=== PATIENT | female | born 1965 | race Caucasian/White ===

== ENCOUNTER → 2016-04-25 | Day surgery (SDC) | payer OTHER ==
[~2016-04-25] VITALS: Ht 160 cm; Wt 68.5 kg
[~2016-04-25] MED LIST: ALEN70TA39 PO; ASPI1TAB PO; BACITRACIN OINT 30GM As Ordered ONE; BACITRACIN OINT 30GM TOP ONE; GEMF600T PO; LIDOCAINE 2% INJ 100 MG/5 ML SDV (FOR ANES.) As Ordered ONE; LIDOCAINE W/EPINEPHRINE 1% 20ML VIAL As Ordered ONE; LIDOCAINE W/EPINEPHRINE 1% 20ML VIAL SC ONE; LR 1,000 ML IV SCH; MIDAZOLAM INJ 2 MG/2 ML VIAL (J2250) As Ordered ONE; NORCOTAB PO; PROPOFOL 200 MG/20 ML VIAL As Ordered ONE; VERA100C PO; VERA40TA2 PO; VITA200015 PO; [UNRECOGNIZED DRUG - OTHER] IM; dexameTHASONE 4 MG/ML 1ML VIAL (J1100) IV ONE; fentaNYL 100 MCG/2 ML INJECTION (J3010) As Ordered ONE
[2016-04-25 11:10] VITALS: BP 119/76
--- NOTE | 2016-04-26 08:42 | RO ---
DATE OF PROCEDURE: 04/25/2016 PREPROCEDURE DIAGNOSIS: Left cheek cutaneous lesion, 1x1 cm. POSTPROCEDURE DIAGNOSIS: Left cheek cutaneous lesion, 1x1 cm. PROCEDURE: Excisional biopsy of the left cheek lesion. SURGEON: Dr. Tomás Walls SUBSTANCE ABUSE TECHNICIAN: ANESTHESIA: Local. CLINICAL PREAMBLE: This is a 50-year-old woman who presented to the office with an enlarging pigmented lesion over the left cheek area in the left lower lip region. Management options including excisional biopsy had been discussed. The patient understood and consented to the procedure. OR NARRATION: The patient was identified in preoperative holding and had the left cheek marked. She was brought to the operating room in stable condition. In supine position on the operating table, the patient received local sedation. The patient was prepped and draped in the usual fashion for the procedure. The left cheek cutaneous lesion was outlined and measured 1x1 cm in size. The margin of the excision site was infiltrated with 1% lidocaine with 1:00,000 epinephrine. Skin incision was made using a #15 scalpel. The excisional biopsy was then successfully performed. Hemostasis was achieved using bipolar electrocautery. The deep layer of the skin was closed using the #5-0 Monocryl. The final skin closure was achieved using #6-0 Prolene. Upon complete closure of the two layer closure, bacitracin was applied to the surgical site. At the end of the procedure, sponge and instrument counts were correct. No complications were encountered. Estimated blood loss was less than 1 mL. Local sedation was reversed and the patient was awakened and taken to the recovery room in stable condition.
== END | disposition home or self-care (01) ==
LOC: M SDC 08:10
PROVIDERS: ATTEND Otolaryngology
DX: L57.0 Actinic keratosis (principal); I10 Essential (primary) hypertension; E78.5 Hyperlipidemia, unspecified; K58.8 Other irritable bowel syndrome; Z79.82 Long term (current) use of aspirin; Z88.0 Allergy status to penicillin; F17.210 Nicotine dependence, cigarettes, uncomplicated
CPT/HCPCS: 11441; 88305; J1100; J2250; J3010

== ENCOUNTER 2016-07-18 19:06 | Emergency (ER) | payer OTHER ==
[~2016-07-18] VITALS: Ht 160 cm; Wt 68.5 kg
[~2016-07-18 19:06] MED LIST changes: -CLEO300C2 PO; -IBUP600T26 PO; -TYLE500T78 PO
[2016-07-18] MEDS ORDERED: TYLE500T78 PO (19:16)
[2016-07-18] MEDS ORDERED: CLEO300C2 PO (20:25)
[2016-07-18] MEDS ORDERED: IBUP600T26 PO (20:25)
[2016-07-18] MEDS ORDERED: IBUPROFEN 600 MG TAB PO ONE (20:30)
[2016-07-18] MEDS ORDERED: CLINDAMYCIN 150 MG CAP PO ONE (20:30)
[2016-07-18 20:55] VITALS: BP 124/78
== END 2016-07-18 20:57 | disposition home or self-care (01) ==
LOC: M ED 20:36
DX: K05.20 Aggressive periodontitis, unspecified (principal); F17.200 Nicotine dependence, unspecified, uncomplicated; Z79.82 Long term (current) use of aspirin; Z88.0 Allergy status to penicillin; Z88.8 Allergy status to other drugs, medicaments and biological substances

== ENCOUNTER → 2016-07-18 | Outpatient (REF) | payer OTHER ==
[~2016-07-18] MED LIST changes: -BACITRACIN OINT 30GM As Ordered ONE; -BACITRACIN OINT 30GM TOP ONE; +CLEO300C2 PO; +IBUP600T26 PO; -LIDOCAINE 2% INJ 100 MG/5 ML SDV (FOR ANES.) As Ordered ONE; -LIDOCAINE W/EPINEPHRINE 1% 20ML VIAL As Ordered ONE; -LIDOCAINE W/EPINEPHRINE 1% 20ML VIAL SC ONE; -LR 1,000 ML IV SCH; -MIDAZOLAM INJ 2 MG/2 ML VIAL (J2250) As Ordered ONE; -PROPOFOL 200 MG/20 ML VIAL As Ordered ONE; +TYLE500T78 PO; -dexameTHASONE 4 MG/ML 1ML VIAL (J1100) IV ONE; -fentaNYL 100 MCG/2 ML INJECTION (J3010) As Ordered ONE
[2016-07-18 20:01] LABS: MEAN CORPUSCULAR HEMOGLOBIN 29.6 pg (27.0-33.0); MEAN CORPUSCULAR HGB CONC 33.2 g/dl (32.0-36.5); MEAN CORPUSCULAR VOLUME 89.2 fl (80.0-96.0); RED CELL DISTRIBUTION WIDTH 11.9 % (11.5-14.5); WHITE BLOOD COUNT 7.4 K/mm3 (4.0-10.0)
== END ==
LOC: M LAB REF 16:53
PROVIDERS: ATTEND Nurse Practitioner Family
DX: R23.8 Other skin changes (principal)

== ENCOUNTER → 2016-07-25 | Outpatient (REF) | payer OTHER ==
[~2016-07-25] MED LIST changes: +CLEO300C2 PO; +IBUP600T26 PO; +TYLE500T78 PO
[2016-07-25 14:51] LABS: ALBUMIN 3.9 GM/DL (3.2-5.2); ALBUMIN/GLOBULIN RATIO 1.18 (1.00-1.93); ALKALINE PHOSPHATASE 110 U/L (45-117); ALT/SGPT 34 U/L (12-78); ANION GAP 8 MEQ/L (8-16); AST/SGOT 19 U/L (15-37); BILIRUBIN,TOTAL 0.4 MG/DL (0.2-1.0); BLOOD UREA NITROGEN 20 MG/DL (7-18); CALCIUM LEVEL 9.2 MG/DL (8.5-10.1); CARBON DIOXIDE LEVEL 26 MEQ/L (21-32); CHLORIDE LEVEL 106 MEQ/L (98-107); CHOLESTEROL LEVEL 205 MG/DL (<200); CREATININE FOR GFR 0.78 MG/DL (0.55-1.02); GLOMERULAR FILTRATION RATE > 60.0 (>51); GLUCOSE, FASTING 87 MG/DL (70-105); POTASSIUM SERUM 5.1 MEQ/L (3.5-5.1); SODIUM LEVEL 140 MEQ/L (136-145); TOTAL PROTEIN 7.2 GM/DL (6.4-8.2); TRIGLYCERIDES LEVEL 155 MG/DL (<150)
== END ==
LOC: M LAB REF 12:02
PROVIDERS: ATTEND Nurse Practitioner Family
DX: M81.0 Age-related osteoporosis without current pathological fracture (principal); E78.5 Hyperlipidemia, unspecified

== ENCOUNTER 2016-08-26 12:41 | Emergency (ER) | payer OTHER ==
[~2016-08-26] VITALS: Ht 160 cm; Wt 69.4 kg
[2016-08-26] MEDS ORDERED: VITA500046 PO (12:54)
[2016-08-26] MEDS ORDERED: CALC600T21 PO (12:54)
[2016-08-26 15:14] LABS: BASO % 0.7 % (0.0-1.0); EOS # 0.1 K/mm3 (0.0-0.50); EOS % 1.8 % (0.0-3.0); LARGE UNSTAINED CELL # 0.1 K/mm3 (0.0-0.4); LARGE UNSTAINED CELL % 1.3 % (0.0-4.0); LYMPH # 2.4 K/mm3 (1.5-4.5); LYMPH % 30.6 % (24.0-44.0); MEAN CORPUSCULAR HEMOGLOBIN 30.4 pg (27.0-33.0); MEAN CORPUSCULAR HGB CONC 34.2 g/dl (32.0-36.5); MEAN CORPUSCULAR VOLUME 88.7 fl (80.0-96.0); MONO # 0.4 K/mm3 (0.0-0.8); MONO % 5.4 % (0.0-5.0); NEUTROPHILS # 4.6 K/mm3 (1.8-7.7); NEUTROPHILS % 60.3 % (36.0-66.0); PLATELET COUNT, AUTOMATED 356 k/mm3 (150-450); RED CELL DISTRIBUTION WIDTH 12.1 % (11.5-14.5); WHITE BLOOD COUNT 7.6 K/mm3 (4.0-10.0)
[2016-08-26 15:46] LABS: ANION GAP 5 MEQ/L (8-16); BLOOD UREA NITROGEN 15 MG/DL (7-18); CALCIUM LEVEL 9.2 MG/DL (8.5-10.1); CARBON DIOXIDE LEVEL 28 MEQ/L (21-32); CHLORIDE LEVEL 108 MEQ/L (98-107); GLOMERULAR FILTRATION RATE > 60.0 (>51); GLUCOSE, FASTING 92 MG/DL (70-105); POTASSIUM SERUM 4.5 MEQ/L (3.5-5.1); SODIUM LEVEL 141 MEQ/L (136-145)
[2016-08-26] MEDS ORDERED: ISOVUE-370 76% 100ML VIAL (Q9967) As Ordered ONE (16:16)
[2016-08-26 18:02] VITALS: BP 113/67
--- NOTE | 2016-08-26 18:19 | ECGEPIP ---
Stationary ECG Study [place] - ED Test Date: 2016-08-26 Pat Name: ALONSO AMARO Department: Room: - Gender: F Poll Clerk: MS : 1965 Requested By: REGI NEWTON Order Number: [id number] Reading MD: Татьяна Romero Measurements Intervals [place] Rate: 71 P: 36 NE: 131 QRS: 41 QRSD: 83 T: 40 QT: 378 QTc: 412 Interpretive Statements SINUS RHYTHM POSSIBLE RIGHT VENTRICULAR CONDUCTION DELAY Electronically Signed On 08-26-2016 18:19:06 EDT by Татьяна Romero
--- NOTE | 2016-08-27 09:16 | REP ---
CT ABDOMEN AND PELVIS WITH CONTRAST: HISTORY: Pelvic pain. CONTRAST: Isovue-370, 100 mL. COMPARISON: 06/05/2014 The patient is status post cholecystectomy. A 6 mm hypodensity is present in the right lobe of the liver. Two hypodensities, 4 and 6 mm in size, are present in the inferior spleen. These may represent cysts. The pancreas, adrenal glands, and kidneys are normal in appearance. There is no mass, adenopathy, or free fluid. The visualized lungs are clear. The patient is status post hysterectomy. The urinary bladder is normal in appearance. IMPRESSION: 1. The patient is status post cholecystectomy. 2. There are small hypodensities in the liver and spleen that most likely represent cysts. Ultrasound may be helpful for further evaluation. 3. The patient is status post hysterectomy. Signed by Rubén Downs MD 08/27/2016 09:23 A
== END 2016-08-26 18:22 | disposition home or self-care (01) ==
LOC: M ED 13:40
DX: R10.2 Pelvic and perineal pain (principal); M53.3 Sacrococcygeal disorders, not elsewhere classified; I10 Essential (primary) hypertension; E78.5 Hyperlipidemia, unspecified; K21.9 Gastro-esophageal reflux disease without esophagitis; F17.210 Nicotine dependence, cigarettes, uncomplicated; K58.9 Irritable bowel syndrome, unspecified; Z88.8 Allergy status to other drugs, medicaments and biological substances; Z88.0 Allergy status to penicillin

== ENCOUNTER → 2016-10-02 | Outpatient (REF) | payer OTHER ==
[~2016-10-02] MED LIST changes: +CALC600T60 PO; +D 501TAB; +ESTR1CRE; +FLUT1SPR2; +IBUP-1022 PO; -IBUP600T26 PO; +ULTR50TA8 PO; +VITA500046 PO
[2016-10-02 19:20] LABS: ANION GAP 7 MEQ/L (8-16); BLOOD UREA NITROGEN 15 MG/DL (7-18); CALCIUM LEVEL 9.5 MG/DL (8.5-10.1); CARBON DIOXIDE LEVEL 26 MEQ/L (21-32); CHLORIDE LEVEL 106 MEQ/L (98-107); CREATININE FOR GFR 0.86 MG/DL (0.55-1.02); GLOMERULAR FILTRATION RATE > 60.0 (>51); GLUCOSE, FASTING 97 MG/DL (70-105); POTASSIUM SERUM 4.3 MEQ/L (3.5-5.1); SODIUM LEVEL 139 MEQ/L (136-145)
== END ==
LOC: M LAB REF 17:50
PROVIDERS: ATTEND Nurse Practitioner Family
DX: E55.9 Vitamin D deficiency, unspecified (principal)

== ENCOUNTER → 2016-12-04 | Outpatient (CLI) | payer OTHER ==
[2016-12-04 14:54] LABS: ALBUMIN 3.9 GM/DL (3.2-5.2); ALBUMIN/GLOBULIN RATIO 1.18 (1.00-1.93); BILIRUBIN,DIRECT 0.1 MG/DL (0.0-0.2); BILIRUBIN,TOTAL 0.4 MG/DL (0.2-1.0); TOTAL PROTEIN 7.2 GM/DL (6.4-8.2)
== END ==
LOC: M LAB 12:20
PROVIDERS: ATTEND Internal Medicine Cardiovascular Disease
DX: E78.5 Hyperlipidemia, unspecified (principal)

== ENCOUNTER 2016-12-11 12:23 | Emergency (ER) | payer OTHER ==
[~2016-12-11] VITALS: Ht 160 cm; Wt 70.0 kg
[~2016-12-11 12:23] MED LIST changes: -D 501TAB; -ESTR1CRE; -FLUT1SPR2; -ULTR50TA8 PO
[2016-12-11 12:24] VITALS: BP 147/82
[2016-12-11] MEDS ORDERED: FLUT1SPR2 (12:53)
[2016-12-11] MEDS ORDERED: ULTR50TA8 PO (14:22)
== END 2016-12-11 14:43 | disposition home or self-care (01) ==
LOC: M ED 12:23
DX: S70.12XA Contusion of left thigh, initial encounter (principal); X58.XXXA Exposure to other specified factors, initial encounter; Y92.89 Other specified places as the place of occurrence of the external cause; Y93.89 Activity, other specified; Y99.8 Other external cause status; I10 Essential (primary) hypertension; E78.00 Pure hypercholesterolemia, unspecified; Z79.51 Long term (current) use of inhaled steroids; Z79.82 Long term (current) use of aspirin; Z79.899 Other long term (current) drug therapy; Z88.8 Allergy status to other drugs, medicaments and biological substances; Z88.0 Allergy status to penicillin

== ENCOUNTER 2016-12-14 17:31 | Emergency (ER) | payer OTHER ==
[~2016-12-14] VITALS: Ht 160 cm; Wt 76.9 kg
[~2016-12-14 17:31] MED LIST changes: -D 501TAB; -ESTR1CRE
[2016-12-14] MEDS ORDERED: D 501TAB (17:44)
[2016-12-14] MEDS ORDERED: ESTR1CRE (17:44)
[2016-12-14 21:34] LABS: BASO # 0.1 K/mm3 (0.0-0.2); BASO % 0.6 % (0.0-1.0); EOS # 0.2 K/mm3 (0.0-0.50); EOS % 2.3 % (0.0-3.0); LARGE UNSTAINED CELL # 0.2 K/mm3 (0.0-0.4); LARGE UNSTAINED CELL % 1.4 % (0.0-4.0); LYMPH # 3.4 K/mm3 (1.5-4.5); LYMPH % 31.6 % (24.0-44.0); MEAN CORPUSCULAR HEMOGLOBIN 31.1 pg (27.0-33.0); MEAN CORPUSCULAR HGB CONC 35.3 g/dl (32.0-36.5); MEAN CORPUSCULAR VOLUME 88.3 fl (80.0-96.0); MONO # 0.4 K/mm3 (0.0-0.8); MONO % 3.8 % (0.0-5.0); NEUTROPHILS # 6.5 K/mm3 (1.8-7.7); NEUTROPHILS % 60.2 % (36.0-66.0); PLATELET COUNT, AUTOMATED 452 k/mm3 (150-450); RED CELL DISTRIBUTION WIDTH 12.3 % (11.5-14.5); WHITE BLOOD COUNT 10.8 K/mm3 (4.0-10.0)
[2016-12-14 21:40] LABS: INR 0.94
[2016-12-14 21:56] LABS: ANION GAP 7 MEQ/L (8-16); BLOOD UREA NITROGEN 15 MG/DL (7-18); CALCIUM LEVEL 9.8 MG/DL (8.5-10.1); CARBON DIOXIDE LEVEL 29 MEQ/L (21-32); CHLORIDE LEVEL 106 MEQ/L (98-107); CREATININE FOR GFR 0.81 MG/DL (0.55-1.02); GLOMERULAR FILTRATION RATE > 60.0 (>51); GLUCOSE, FASTING 96 MG/DL (70-105); POTASSIUM SERUM 4.2 MEQ/L (3.5-5.1); SODIUM LEVEL 142 MEQ/L (136-145)
--- NOTE | 2016-12-14 22:50 | REPUSA ---
CT of the head Clinical history: vertigo. Comparison: 03/02/2013. Technique: Multiple axial CT images were obtained through the head without administration of contrast . Findings: The ventricles and sulci are symmetric bilaterally. There is no evidence of acute hemorrhag e or infarct. There is no midline shift, mass effect, or extra-axial fluid collection. The osseous st ructures are unremarkable. The visualized paranasal sinuses and mastoid air cells are clear. Impression: Negative study.
[2016-12-14 23:19] VITALS: BP 123/77
--- NOTE | 2016-12-15 11:43 | ECGEPIP ---
Stationary ECG Study [facility] - ED Test Date: 2016-12-14 Pat Name: ALONSO AMARO Department: Room: - Gender: F Verse Writer: : 1965 Requested By: LASHANDA Leiva PA-C Order Number: [id number] Reading MD: Татьяна Romero Measurements Intervals [place] Rate: 90 P: 57 NH: 127 QRS: 46 QRSD: 85 T: 34 QT: 349 QTc: 428 Interpretive Statements SINUS RHYTHM MODERATE ST DEPRESSION COMPARED 08/26/16 Electronically Signed On 12-15-2016 11:43:44 EDT by Татьяна Romero
--- NOTE | 2016-12-22 16:49 | REP ---
HISTORY: Chest tightness. COMPARISON: 01/11/2016 Original examination date: 12/14/2016 This examination has been brought to my attention for the first time for interpretation today at this time. FINDINGS: The superior mediastinal structures are midline. The cardiac silhouette is unremarkable in size, shape and position. The diaphragmatic surfaces of the lungs are regular and the costophrenic angles are clear. The pulmonary velázquez are clear. The imaged osseous structures are intact. IMPRESSION: There is no acute cardiopulmonary disease. No change from the prior exam. Signed by Paul Nash DO 12/22/2016 05:12 P
== END 2016-12-14 23:41 | disposition home or self-care (01) ==
LOC: M ED 17:31
DX: R42 Dizziness and giddiness (principal); F41.9 Anxiety disorder, unspecified; F17.200 Nicotine dependence, unspecified, uncomplicated; Z82.49 Family history of ischemic heart disease and other diseases of the circulatory system; Z79.82 Long term (current) use of aspirin; Z79.899 Other long term (current) drug therapy; Z88.0 Allergy status to penicillin; Z88.8 Allergy status to other drugs, medicaments and biological substances

== ENCOUNTER → 2016-12-14 | Outpatient (CLI) | payer OTHER ==
[~2016-12-14] MED LIST changes: +D 501TAB; +ESTR1CRE; +FLUT1SPR2; +ULTR50TA8 PO
[2016-12-14 12:49] LABS: BASO # 0.1 K/mm3 (0.0-0.2); BASO % 0.7 % (0.0-1.0); EOS # 0.2 K/mm3 (0.0-0.50); EOS % 2.2 % (0.0-3.0); LARGE UNSTAINED CELL # 0.2 K/mm3 (0.0-0.4); LARGE UNSTAINED CELL % 2.1 % (0.0-4.0); LYMPH # 2.5 K/mm3 (1.5-4.5); LYMPH % 29.7 % (24.0-44.0); MEAN CORPUSCULAR HEMOGLOBIN 30.4 pg (27.0-33.0); MEAN CORPUSCULAR HGB CONC 34.3 g/dl (32.0-36.5); MEAN CORPUSCULAR VOLUME 88.6 fl (80.0-96.0); MONO # 0.4 K/mm3 (0.0-0.8); MONO % 4.7 % (0.0-5.0); NEUTROPHILS % 60.7 % (36.0-66.0); PLATELET COUNT, AUTOMATED 417 k/mm3 (150-450); RED CELL DISTRIBUTION WIDTH 12.3 % (11.5-14.5); WHITE BLOOD COUNT 8.3 K/mm3 (4.0-10.0)
== END ==
LOC: M LAB 11:55
PROVIDERS: ATTEND Family Medicine Addiction Medicine
DX: R42 Dizziness and giddiness (principal)

== ENCOUNTER → 2017-01-08 | Outpatient (CLI) | payer OTHER ==
[~2017-01-08] MED LIST changes: +D 501TAB; +ESTR1CRE
--- NOTE | 2017-01-09 02:20 | REP ---
Clinical: Upper respiratory tract infection . Comparison: 12/14/2016 . Technique: PA and lateral. Findings: The mediastinum and cardiac silhouette are normal. The lung velázquez are clear and without acute consolidation, effusion, or pneumothorax. The skeletal structures are intact and normal. Impression: 1. No acute cardiopulmonary process. Signed by Nicko Gomez MD 01/09/2017 02:12 A
== END ==
LOC: M LAB 11:44 → M RAD 11:44
PROVIDERS: ATTEND Nurse Practitioner Adult Health
DX: J06.9 Acute upper respiratory infection, unspecified (principal)

== ENCOUNTER → 2017-03-14 | Outpatient (CLI) | payer OTHER ==
--- NOTE | 2017-03-14 15:17 | REPMRS ---
Patient History The patient states she has not had a clinical breast exam in over a year. Family history of endometrial cancer in mother at age 50 or over. Digital Mammo Screening Bilat: March 14, 2017 - Exam #: [id number] Bilateral CC and MLO view(s) were taken. Technologist: Joceline Cabrera, Technologist Prior study comparison: March 13, 2016, bilateral digital mammo screening bilat performed at [facility]. March 10, 2015, digital mammo diagnostic bilateral performed at [facility]. FINDINGS: There are scattered fibroglandular densities. There is a fairly symmetric fibroglandular pattern in both breasts. There has been no interval development of masses, areas of architectural distortion or clusters of microcalcifications typical of malignancy. ASSESSMENT: BI-RADS/ACR category 2 mammogram. Benign finding(s). Recommendation Routine screening mammogram of both breasts in 1 year (for women over age 40). This mammogram was interpreted with the aid of an FDA-approved computer-aided dectection system. Electronically Signed By: Gwyn Douglass MD 03/14/17 [id number]
== END ==
LOC: M RAD 14:24
PROVIDERS: ATTEND Nurse Practitioner Adult Health
DX: Z12.31 Encounter for screening mammogram for malignant neoplasm of breast (principal)

== ENCOUNTER 2017-08-24 20:03 | Emergency (ER) | payer OTHER ==
[2017-08-24] MEDS: METHOCARBAMOL 500 MG TAB PO (21:11)
[2017-08-24] MEDS: NORCO, ANEXSIA 5/325MG TABLET (HYDROcodone/ACETAMINOPHEN) PO (21:12)
== END 2017-08-24 21:27 | disposition home or self-care (01) ==
LOC: M ED 20:03
DX: S29.012A Strain of muscle and tendon of back wall of thorax, initial encounter (principal); X50.0XXA Overexertion from strenuous movement or load, initial encounter; Y92.89 Other specified places as the place of occurrence of the external cause; I10 Essential (primary) hypertension; K21.9 Gastro-esophageal reflux disease without esophagitis; F90.9 Attention-deficit hyperactivity disorder, unspecified type; Z88.0 Allergy status to penicillin; Z88.8 Allergy status to other drugs, medicaments and biological substances; Z79.82 Long term (current) use of aspirin
CPT/HCPCS: 99282

== ENCOUNTER → 2017-09-28 | Outpatient (CLI) | payer OTHER | LOC: M RAD 14:10 | DX: H92.02 Otalgia, left ear (principal) | CPT/HCPCS: 70480 ==

== ENCOUNTER 2017-10-25 10:22 | Day surgery (SDC) | payer OTHER ==
[2017-10-25] MEDS: LR 1,000 ML IV ×2 (11:00→14:34)
[2017-10-25] MEDS ORDERED: MIDAZOLAM INJ 2 MG/2 ML VIAL (J2250) As Ordered (11:54)
[2017-10-25] MEDS ORDERED: ONDANSETRON 4MG/2ML VIAL (J2405) As Ordered (11:54)
[2017-10-25] MEDS ORDERED: dexameTHASONE 4 MG/ML 1ML VIAL (J1100) As Ordered (11:54)
[2017-10-25] MEDS ORDERED: LIDOCAINE 2% INJ 100 MG/5 ML SDV (FOR ANES.) As Ordered (11:54)
[2017-10-25] MEDS ORDERED: fentaNYL 100 MCG/2 ML INJECTION (J3010) As Ordered (11:54)
[2017-10-25] MEDS ORDERED: PROPOFOL 200 MG/20 ML VIAL As Ordered (11:54)
[2017-10-25] MEDS: SCOPOLAMINE 1MG TRANSDERMAL PATCH TOP (12:00)
[2017-10-25] MEDS ORDERED: SCOPOLAMINE 1MG TRANSDERMAL PATCH As Ordered (12:00)
[2017-10-25] MEDS: CIPRODEX OTIC SUSP 7.5ML As Ordered (14:23)
[2017-10-25] MEDS ORDERED: ONDANSETRON 4MG/2ML VIAL (J2405) IV (14:45)
[2017-10-25] MEDS ORDERED: fentaNYL 100 MCG/2 ML INJECTION (J3010) IV (14:45)
[2017-10-25] MEDS: PERCOCET 5MG/325MG TAB PO ×2 (14:47→15:17)
[2017-10-25] MEDS ORDERED: ACETAMINOPHEN TAB 650MG DOSE (2X325MG) PO (15:00)
== END 2017-10-25 15:46 | disposition home or self-care (01) ==
LOC: M SDC 10:22
DX: H69.92 Unspecified Eustachian tube disorder, left ear (principal); K58.9 Irritable bowel syndrome, unspecified; M06.9 Rheumatoid arthritis, unspecified; M81.0 Age-related osteoporosis without current pathological fracture; R51 Headache; K21.9 Gastro-esophageal reflux disease without esophagitis; Z88.0 Allergy status to penicillin; Z88.8 Allergy status to other drugs, medicaments and biological substances; Z79.899 Other long term (current) drug therapy; Z79.82 Long term (current) use of aspirin; Z72.0 Tobacco use
CPT/HCPCS: 69436

== ENCOUNTER 2018-01-01 08:45 | Day surgery (SDC) | payer OTHER ==
[2018-01-01] MEDS: NS 1,000 ML IV (09:15)
[2018-01-01] MEDS ORDERED: PROPOFOL 200 MG/20 ML VIAL As Ordered (10:00)
[2018-01-01] MEDS ORDERED: LIDOCAINE 2% INJ 100 MG/5 ML SDV (FOR ANES.) As Ordered (10:00)
== END 2018-01-01 10:40 | disposition home or self-care (01) ==
LOC: M OPP 08:45
DX: Z12.11 Encounter for screening for malignant neoplasm of colon (principal); Z80.0 Family history of malignant neoplasm of digestive organs; Z86.010 Personal history of colon polyps; Z83.71 Family history of colonic polyps; D12.5 Benign neoplasm of sigmoid colon; K63.89 Other specified diseases of intestine; K58.9 Irritable bowel syndrome, unspecified; K21.9 Gastro-esophageal reflux disease without esophagitis; R12 Heartburn; Z87.39 Personal history of other diseases of the musculoskeletal system and connective tissue; M06.9 Rheumatoid arthritis, unspecified; M81.0 Age-related osteoporosis without current pathological fracture; G43.909 Migraine, unspecified, not intractable, without status migrainosus; R06.83 Snoring; F17.210 Nicotine dependence, cigarettes, uncomplicated; Z88.8 Allergy status to other drugs, medicaments and biological substances; Z88.0 Allergy status to penicillin; Z79.82 Long term (current) use of aspirin
CPT/HCPCS: 45385

== ENCOUNTER → 2018-03-21 | Outpatient (CLI) | payer OTHER ==
[~2018-03-21] MED LIST changes: -ALEN70TA39 PO; +ALEN70TA57 PO; +DOXY-350; +GEMF600T5 PO; +MIRA3350 PO; +OFLOSO AS; +ROBA500T PO; +TYLE325T5 PO
--- NOTE | 2018-03-21 17:31 | REP ---
BILATERAL MAMMOGRAM WITH 3D TOMOSYNTHESIS AND DIAGNOSTIC MAMMOGRAM LEFT BREAST WITH LEFT BREAST ULTRASOUND: Bilateral mammography performed in the MLO and CC projections with 3D tomosynthesis. Comparison made with prior studies, the most recent of which is 03/14/2017. Reportedly there is a palpable abnormality in the superior inner left breast. That area is marked on the skin with a triangular marker and additional spot compression views are obtained. [facility] of [facility] cancer is 8.6%. Mild to moderate scattered fibroglandular tissue is again seen bilaterally. There is a stable oval well-circumscribed nodule in the upper outer left breast with an adjacent metallic clip. There is no new mass identified and no suspicious clusters of microcalcifications are seen. Real-time sonographic evaluation of the left breast performed at the site of the reported palpable abnormality. There are two adjacent 4 mm cysts at that location without other evidence of cystic or solid nodule. IMPRESSION: ACR 2 benign. No suspicious mass or clustered microcalcifications bilaterally. There is no mammographic abnormality at the site of the reported palpable lump at 11-o'clock of the left breast. By ultrasound, there are two adjacent 4 mm cysts which appear benign. Routine followup mammogram is recommended in one year. BI-RADS/ACR category 2 mammogram. Benign finding(s). Routine annual screening mammography (for women over age 40). This mammogram was interpreted with the aid of an FDA-approved computer-aided detection system. The patient states she/he had a clinical breast exam in 02/2018. The patient letter being requested is M2. Electronically Signed by Gwyn Douglass MD 03/28/2018 10:59 P
== END ==
LOC: M RAD 14:45
PROVIDERS: ATTEND Family Medicine Addiction Medicine
DX: Z12.31 Encounter for screening mammogram for malignant neoplasm of breast (principal); N60.02 Solitary cyst of left breast
CPT/HCPCS: 76642; 77066; G0279

== ENCOUNTER → 2018-03-29 | Outpatient (REF) | payer OTHER ==
[2018-03-29 19:11] LABS: BASO # 0.1 10^3/uL (0.0-0.2); BASO % 0.5 % (0.0-1.0); EOS # 0.2 10^3/uL (0.0-0.50); EOS % 2.3 % (0.0-3.0); HEMATOCRIT 43.6 % (36.0-47.0); HEMOGLOBIN 14.6 g/dl (12.0-15.5); LYMPH # 2.9 10^3/uL (1.5-4.5); LYMPH % 31.3 % (24.0-44.0); MEAN CORPUSCULAR HEMOGLOBIN 29.9 pg (27.0-33.0); MEAN CORPUSCULAR HGB CONC 33.5 g/dl (32.0-36.5); MEAN CORPUSCULAR VOLUME 89.3 fl (80.0-96.0); MONO # 0.6 10^3/uL (0.0-0.8); NEUTROPHILS # 5.4 10^3/uL (1.8-7.7); NEUTROPHILS % 59.7 % (36.0-66.0); PLATELET COUNT, AUTOMATED 441 10^3/uL (150-450); RED BLOOD COUNT 4.88 10^6/uL (4.00-5.40); WHITE BLOOD COUNT 9.1 10^3/uL (4.0-10.0)
[2018-03-29 19:27] LABS: ALT/SGPT 32 U/L (12-78); BILIRUBIN,TOTAL 0.5 MG/DL (0.2-1.0); BLOOD UREA NITROGEN 20 MG/DL (7-18); CALCIUM LEVEL 9.3 MG/DL (8.5-10.1); CARBON DIOXIDE LEVEL 26 MEQ/L (21-32); CHLORIDE LEVEL 104 MEQ/L (98-107); CHOLESTEROL LEVEL 216 MG/DL (<200); CHOLESTEROL RISK RATIO 5.538 (<5); CREATININE FOR GFR 0.82 MG/DL (0.55-1.30); GLOMERULAR FILTRATION RATE > 60.0 (>51); GLUCOSE, FASTING 95 MG/DL (70-100); HDL CHOLESTEROL 39 MG/DL (>40); LDL CHOLESTEROL 132 MG/DL (<100); NON-HDL-C 177 MG/DL; POTASSIUM SERUM 4.4 MEQ/L (3.5-5.1); SODIUM LEVEL 140 MEQ/L (136-145); TOTAL PROTEIN 7.7 GM/DL (6.4-8.2); TRIGLYCERIDES LEVEL 225 MG/DL (<150)
== END ==
LOC: M LAB REF 16:23
PROVIDERS: ATTEND Family Medicine Addiction Medicine
DX: I10 Essential (primary) hypertension (principal)

== ENCOUNTER → 2018-05-02 | Outpatient (CLI) | payer OTHER ==
--- NOTE | 2018-05-03 01:38 | REP ---
Clinical: Cranial lesion. Technique: Five views of the skull. Findings: The osseous structures and surrounding soft tissues appear essentially normal. No obvious abnormality identified. Impression: No obvious abnormality noted. Electronically Signed by Nicko Gomez MD 05/03/2018 01:28 A
== END ==
LOC: M RAD 11:10
PROVIDERS: ATTEND Family Medicine Addiction Medicine
DX: G93.89 Other specified disorders of brain (principal)

== ENCOUNTER 2018-05-07 15:37 | Emergency (ER) | payer OTHER ==
[~2018-05-07] VITALS: Ht 160 cm; Wt 70.9 kg
[2018-05-07] MEDS ORDERED: LORazepam 2 MG/ML VIAL (J2060) IM STA (16:40)
[2018-05-07] MEDS ORDERED: ROBA500T PO (16:40)
[2018-05-07 17:07] VITALS: BP 142/82
== END 2018-05-07 17:09 | disposition home or self-care (01) ==
LOC: M ED 15:37
DX: M62.838 Other muscle spasm (principal)
CPT/HCPCS: 96372; 99283; J2060

== ENCOUNTER 2018-05-12 06:38 | Emergency (ER) | payer OTHER ==
[~2018-05-12] VITALS: Ht 160 cm; Wt 70.9 kg
[2018-05-12] MEDS ORDERED: ONDANSETRON 4 MG ORAL DISINTEGRATING TAB (Q0162 PER 1MG) PO ONE (08:00)
[2018-05-12] MEDS ORDERED: ACETAMINOPHEN 325 MG TAB PO ONE (08:00)
[2018-05-12 08:13] LABS: INFLUENZA A AMPLIFICATION POSITIVE (NEGATIVE); INFLUENZA B AMPLIFICATION NEGATIVE (NEGATIVE)
[2018-05-12] MEDS ORDERED: ONDA4TAB6 PO (09:34)
[2018-05-12] MEDS ORDERED: OSEL75CA PO (09:34)
[2018-05-12 09:37] VITALS: BP 102/69
== END 2018-05-12 10:06 | disposition home or self-care (01) ==
LOC: M ED 06:38
DX: J09.X2 Influenza due to identified novel influenza A virus with other respiratory manifestations (principal); F17.210 Nicotine dependence, cigarettes, uncomplicated; Z88.0 Allergy status to penicillin; Z88.8 Allergy status to other drugs, medicaments and biological substances; E78.00 Pure hypercholesterolemia, unspecified; K21.9 Gastro-esophageal reflux disease without esophagitis; Z87.442 Personal history of urinary calculi; M81.0 Age-related osteoporosis without current pathological fracture
CPT/HCPCS: 87502; 87880; 99284; Q0162

== ENCOUNTER 2018-06-17 13:01 | Emergency (ER) | payer OTHER ==
[~2018-06-17] VITALS: Ht 160 cm; Wt 70.5 kg
[~2018-06-17 13:01] MED LIST changes: -ALEN70TA57 PO; +ALEN70TA74 PO; -ASPI1TAB PO; +ASPI81TA26 PO; -D 501TAB; +HYDR-3715 PO; +ONDA4TAB6 PO; +OSEL75CA PO; +VITA500030
[2018-06-17 13:43] LABS: BASO # 0.1 10^3/uL (0.0-0.2); BASO % 0.4 % (0.0-1.0); EOS # 0.1 10^3/uL (0.0-0.50); EOS % 0.7 % (0.0-3.0); HEMATOCRIT 41.1 % (36.0-47.0); HEMOGLOBIN 13.8 g/dl (12.0-15.5); LYMPH % 26.6 % (24.0-44.0); MEAN CORPUSCULAR HEMOGLOBIN 30.5 pg (27.0-33.0); MEAN CORPUSCULAR HGB CONC 33.6 g/dl (32.0-36.5); MEAN CORPUSCULAR VOLUME 90.7 fl (80.0-96.0); MONO # 0.6 10^3/uL (0.0-0.8); MONO % 5.7 % (0.0-5.0); NEUTROPHILS # 7.4 10^3/uL (1.8-7.7); NEUTROPHILS % 66.1 % (36.0-66.0); PLATELET COUNT, AUTOMATED 364 10^3/uL (150-450); RED BLOOD COUNT 4.53 10^6/uL (4.00-5.40); WHITE BLOOD COUNT 11.1 10^3/uL (4.0-10.0)
[2018-06-17 14:04] LABS: ALBUMIN 3.9 GM/DL (3.2-5.2); ALT/SGPT 33 U/L (12-78); AMYLASE 40 U/L (25-115); BILIRUBIN,DIRECT < 0.1 MG/DL (0.0-0.2); BILIRUBIN,TOTAL 0.3 MG/DL (0.2-1.0); BLOOD UREA NITROGEN 13 MG/DL (7-18); CALCIUM LEVEL 9.2 MG/DL (8.5-10.1); CARBON DIOXIDE LEVEL 27 MEQ/L (21-32); CHLORIDE LEVEL 106 MEQ/L (98-107); CREATININE FOR GFR 0.81 MG/DL (0.55-1.30); GLOMERULAR FILTRATION RATE > 60.0 (>51); GLUCOSE, FASTING 96 MG/DL (70-100); LIPASE 122 U/L (73-393); POTASSIUM SERUM 4.3 MEQ/L (3.5-5.1); SODIUM LEVEL 138 MEQ/L (136-145); TOTAL PROTEIN 7.7 GM/DL (6.4-8.2)
--- NOTE | 2018-06-17 14:51 | REP ---
Clinical: Flank pain. Technique: Axial noncontrast images from the lung bases to the pubic symphysis with coronal and sagittal re-formations. Comparison: 08/26/2016. Findings: Lung bases are clear. Visualized heart and pericardium normal. Liver, spleen, pancreas, bilateral adrenal glands and kidneys are essentially normal. 1 mm nonobstructing calculus in the left kidney (image 49) cannot be excluded. No hydroureteronephrosis or obstructing ureteral calculi are identified. The patient is noted to be status post cholecystectomy. The enteric system is without obstruction or acute inflammatory process. Pelvis demonstrates normal bladder and evidence for prior hysterectomy. Calcifications in the pelvis consistent with phleboliths and dropped surgical clips. No ascites. No free air. No adenopathy. Abdominal aorta without aneurysm. Musculoskeletal structures without focal osseous abnormality. Impression: 1. Possible 1 mm nonobstructing left intrarenal calculus. No further urinary tract pathology appreciated. 2. No acute abdominopelvic pathology appreciated. Electronically Signed by Nicko Gomez MD 06/17/2018 02:43 P
[2018-06-17] MEDS ORDERED: ACETAMINOPHEN TAB 650MG DOSE (2X325MG) PO ONE (15:15)
[2018-06-17] MEDS ORDERED: COLA100C5 PO (15:27)
[2018-06-17] MEDS ORDERED: NAPR250T4 PO (15:27)
[2018-06-17 15:30] VITALS: BP 117/60
== END 2018-06-17 16:15 | disposition home or self-care (01) ==
LOC: M ED 13:01 → EDBD 13:01 → M ED 16:15
DX: R10.9 Unspecified abdominal pain (principal); K59.00 Constipation, unspecified; R11.0 Nausea; K58.9 Irritable bowel syndrome, unspecified; E78.5 Hyperlipidemia, unspecified; K21.9 Gastro-esophageal reflux disease without esophagitis; G47.33 Obstructive sleep apnea (adult) (pediatric); Z87.442 Personal history of urinary calculi; F17.210 Nicotine dependence, cigarettes, uncomplicated; Z88.0 Allergy status to penicillin; Z88.8 Allergy status to other drugs, medicaments and biological substances; Z87.19 Personal history of other diseases of the digestive system; Z79.82 Long term (current) use of aspirin

== ENCOUNTER 2018-06-23 16:58 | Emergency (ER) | payer OTHER ==
[~2018-06-23] VITALS: Ht 160 cm; Wt 70.9 kg
[~2018-06-23 16:58] MED LIST changes: +COLA100C5 PO; +NAPR250T4 PO
[2018-06-23 17:42] LABS: BASO # 0.1 10^3/uL (0.0-0.2); BASO % 0.7 % (0.0-1.0); EOS # 0.1 10^3/uL (0.0-0.50); EOS % 1.1 % (0.0-3.0); HEMATOCRIT 45.1 % (36.0-47.0); HEMOGLOBIN 14.6 g/dl (12.0-15.5); LYMPH # 3.8 10^3/uL (1.5-4.5); LYMPH % 37.9 % (24.0-44.0); MEAN CORPUSCULAR HEMOGLOBIN 29.7 pg (27.0-33.0); MEAN CORPUSCULAR HGB CONC 32.4 g/dl (32.0-36.5); MEAN CORPUSCULAR VOLUME 91.9 fl (80.0-96.0); MONO # 0.5 10^3/uL (0.0-0.8); MONO % 4.7 % (0.0-5.0); NEUTROPHILS # 5.5 10^3/uL (1.8-7.7); NEUTROPHILS % 55.1 % (36.0-66.0); PLATELET COUNT, AUTOMATED 310 10^3/uL (150-450); RED BLOOD COUNT 4.91 10^6/uL (4.00-5.40); WHITE BLOOD COUNT 9.9 10^3/uL (4.0-10.0)
[2018-06-23] MEDS ORDERED: MORPHINE 4 MG/ML 1ML VIAL/SYRINGE (J2270) IV ONE (17:45)
[2018-06-23] MEDS ORDERED: ONDANSETRON 4MG/2ML VIAL (J2405) IV ONE (17:45)
[2018-06-23] MEDS ORDERED: NS 1,000 ML IV ONE (17:45)
[2018-06-23 18:58] LABS: ALT/SGPT 24 U/L (12-78); BILIRUBIN,DIRECT < 0.1 MG/DL (0.0-0.2); BILIRUBIN,TOTAL 0.3 MG/DL (0.2-1.0); BLOOD UREA NITROGEN 12 MG/DL (7-18); CALCIUM LEVEL 9.1 MG/DL (8.5-10.1); CARBON DIOXIDE LEVEL 28 MEQ/L (21-32); CHLORIDE LEVEL 108 MEQ/L (98-107); CREATININE FOR GFR 0.79 MG/DL (0.55-1.30); GLOMERULAR FILTRATION RATE > 60.0 (>51); GLUCOSE, FASTING 93 MG/DL (70-100); LIPASE 137 U/L (73-393); POTASSIUM SERUM 4.4 MEQ/L (3.5-5.1); SODIUM LEVEL 141 MEQ/L (136-145); TOTAL PROTEIN 7.1 GM/DL (6.4-8.2)
[2018-06-23] MEDS ORDERED: ISOVUE-370 76% 100ML VIAL (Q9967) As Ordered ONE (18:59)
--- NOTE | 2018-06-23 19:27 | REP ---
Clinical: Acute left lower abdominal pain. Technique: Axial contrast enhanced images from the lung bases to the pubic symphysis using 100 ml Isovue 370 intravenous contrast material with coronal and sagittal re-formations. Comparison: 06/17/2018, 08/26/2016. Findings: Lung bases are clear. Visualized heart and pericardium are normal. Liver includes benign 1.1 cm hemangioma. The pancreas, bilateral adrenal glands and kidneys are normal. Spleen demonstrates few scattered hypodensities up to 14 mm consistent with cysts. Evidence for prior cholecystectomy. The enteric system is without obstruction or acute inflammatory process. Pelvis demonstrates normal bladder and evidence for prior hysterectomy. No ascites. No free air. No adenopathy. Abdominal aorta and vasculature without aneurysm or dissection. Musculoskeletal structures are intact without focal osseous abnormality. Impression: 1. No acute abdominopelvic pathology appreciated. No ascites, focal inflammatory stranding, or adenopathy. 2. 1.1 cm benign hepatic hemangioma within the anterior right lobe remains similar to 2017. 3. Few small benign appearing splenic cysts again identified and minimally enlarged when compared to 2017. Electronically Signed by Nicko Gomez MD 06/23/2018 07:18 P
[2018-06-23] MEDS ORDERED: ZOFR4TAB16 PO (19:33)
[2018-06-23] MEDS ORDERED: COLA100C5 PO (19:33)
[2018-06-23 19:49] VITALS: BP 128/71
== END 2018-06-23 19:51 | disposition home or self-care (01) ==
LOC: M ED 16:58
DX: K59.00 Constipation, unspecified (principal); K58.9 Irritable bowel syndrome, unspecified; R93.2 Abnormal findings on diagnostic imaging of liver and biliary tract; Z72.0 Tobacco use; Z79.82 Long term (current) use of aspirin; Z88.0 Allergy status to penicillin; Z88.8 Allergy status to other drugs, medicaments and biological substances
CPT/HCPCS: 74177; 80048; 80076; 83605; 83690; 85025; 96374; 96375; 99283; J2270; J2405; Q9967

== ENCOUNTER → 2018-07-05 | Outpatient (CLI) | payer OTHER ==
[~2018-07-05] MED LIST changes: +ZOFR4TAB16 PO
--- NOTE | 2018-07-05 17:17 | REP ---
Head CT without contrast: History: Localized cranial lesion. Comparison study: Comparison head CT December 14, 2016. CT findings: Bone window settings demonstrate an intact bony calvarium. There is no evidence of skull fracture or incidental bony calvarial lesion. The visualized paranasal sinuses appear clear. No intraorbital abnormality is seen. On soft tissue window setting images; the lateral, third, and fourth ventricles are normal in size and position. Douglass-white differentiation pattern is normal above and below the tentorium. There are is no evidence of intracranial hemorrhage. No mass, edema, infarction, or midline shift is seen. No extra-axial fluid collection is appreciated. Impression: Negative noncontrast head CT. Electronically Signed by Aaron Garcias MD 07/05/2018 05:08 P
== END ==
LOC: M RAD 15:12
PROVIDERS: ATTEND Family Medicine Addiction Medicine
DX: G93.89 Other specified disorders of brain (principal)

== ENCOUNTER → 2018-10-21 | Outpatient (REF) | payer OTHER ==
[2018-10-23 00:06] LABS: Lyme Disease IgG/IgM Antibodie <0.91 ISR (0.00-0.90); Lyme Disease IgM Ab Quantitati <0.80 index (0.00-0.79)
== END ==
LOC: M LAB REF 12:26
PROVIDERS: ATTEND Family Medicine
DX: Z13.228 Encounter for screening for other metabolic disorders (principal)

== ENCOUNTER → 2018-10-29 | Outpatient (REF) | payer OTHER ==
[2018-10-29 17:40] LABS: BASO # 0.1 10^3/uL (0.0-0.2); BASO % 0.5 % (0.0-1.0); EOS # 0.2 10^3/uL (0.0-0.50); EOS % 1.6 % (0.0-3.0); HEMATOCRIT 42.7 % (36.0-47.0); HEMOGLOBIN 14.1 g/dl (12.0-15.5); LYMPH # 3.1 10^3/uL (1.5-4.5); LYMPH % 30.4 % (24.0-44.0); MEAN CORPUSCULAR HEMOGLOBIN 30.5 pg (27.0-33.0); MEAN CORPUSCULAR VOLUME 92.4 fl (80.0-96.0); MONO # 0.6 10^3/uL (0.0-0.8); MONO % 5.6 % (0.0-5.0); NEUTROPHILS # 6.2 10^3/uL (1.8-7.7); NEUTROPHILS % 61.5 % (36.0-66.0); PLATELET COUNT, AUTOMATED 405 10^3/uL (150-450); RED BLOOD COUNT 4.62 10^6/uL (4.00-5.40); WHITE BLOOD COUNT 10.1 10^3/uL (4.0-10.0)
[2018-10-29 17:44] LABS: ALBUMIN 3.9 GM/DL (3.2-5.2); ALT/SGPT 30 U/L (12-78); BILIRUBIN,TOTAL 0.3 MG/DL (0.2-1.0); BLOOD UREA NITROGEN 10 MG/DL (7-18); CALCIUM LEVEL 9.2 MG/DL (8.5-10.1); CARBON DIOXIDE LEVEL 28 MEQ/L (21-32); CHLORIDE LEVEL 108 MEQ/L (98-107); CHOLESTEROL LEVEL 174 MG/DL (<200); CHOLESTEROL RISK RATIO 4.971 (<5); CREATININE FOR GFR 0.76 MG/DL (0.55-1.30); FREE T4 1.01 NG/DL (0.76-1.46); GLOMERULAR FILTRATION RATE > 60.0 (>51); GLUCOSE, FASTING 92 MG/DL (70-100); HDL CHOLESTEROL 35 MG/DL (>40); LDL CHOLESTEROL 86 MG/DL (<100); NON-HDL-C 139 MG/DL; POTASSIUM SERUM 4.1 MEQ/L (3.5-5.1); SODIUM LEVEL 141 MEQ/L (136-145); TOTAL PROTEIN 7.2 GM/DL (6.4-8.2); TRIGLYCERIDES LEVEL 263 MG/DL (<150)
[2018-10-29 17:45] LABS: TOTAL 25(OH) VITAMIN D 20.6 NG/ML (30.0-100.0)
[2018-10-29 17:54] LABS: HEMOGLOBIN A1c 5.7 %
== END ==
LOC: M LAB REF 16:20
PROVIDERS: ATTEND Family Medicine
DX: Z13.228 Encounter for screening for other metabolic disorders (principal); R53.83 Other fatigue

== ENCOUNTER → 2018-11-05 | Outpatient (CLI) | payer OTHER ==
--- NOTE | 2018-11-05 17:58 | REP ---
REASON: Tobacco abuse. PRIORS: The only prior for comparison is dated 02/18/2008. As per the protocol only lung window images were sent to the read station for interpretation. No abnormal nodules, masses, or opacities have developed. There is an incidental calcified granuloma in the left lower lobe abutting the major fissure. Limited evaluation of the mediastinum and pulmonary whit show no gross abnormalities or significant changes from the prior exam. Limited evaluation of the imaged upper abdomen and imaged osseous structures show no gross abnormalities or significant changes from the prior exam. IMPRESSION: LUNG RADS Category 1. No abnormal nodules. Electronically Signed by Paul Nash DO 11/06/2018 09:31 A
== END ==
LOC: M RAD 12:51
PROVIDERS: ATTEND Family Medicine
DX: Z12.2 Encounter for screening for malignant neoplasm of respiratory organs (principal)

== ENCOUNTER 2018-12-29 21:06 | Emergency (ER) | payer OTHER ==
[~2018-12-29] VITALS: Ht 165.1 cm; Wt 77.1 kg
[2018-12-29] MEDS ORDERED: CEPHALEXIN 500 MG CAP PO ONE (23:00)
[2018-12-29] MEDS ORDERED: CLEO300C2 PO (23:01)
[2018-12-29 23:09] VITALS: BP 157/95
[2018-12-29] MEDS ORDERED: CLINDAMYCIN 150 MG CAP PO ONE (23:15)
== END 2018-12-29 23:16 | disposition home or self-care (01) ==
LOC: M ED 21:06
DX: T63.301A Toxic effect of unspecified spider venom, accidental (unintentional), initial encounter (principal); H02.841 Edema of right upper eyelid; E78.5 Hyperlipidemia, unspecified; F17.200 Nicotine dependence, unspecified, uncomplicated; Z79.82 Long term (current) use of aspirin; Z88.0 Allergy status to penicillin; Z88.8 Allergy status to other drugs, medicaments and biological substances

== ENCOUNTER 2019-01-05 20:30 | Emergency (ER) | payer OTHER ==
[~2019-01-05] VITALS: Ht 165.1 cm; Wt 79.5 kg
[2019-01-05] MEDS ORDERED: IBUPROFEN 600 MG TAB PO ONE (20:45)
[2019-01-05 20:51] LABS: HEMATOCRIT 39.2 % (36.0-47.0); HEMOGLOBIN 13.1 g/dl (12.0-15.5); MEAN CORPUSCULAR HEMOGLOBIN 30.1 pg (27.0-33.0); MEAN CORPUSCULAR HGB CONC 33.4 g/dl (32.0-36.5); MEAN CORPUSCULAR VOLUME 90.1 fl (80.0-96.0); PLATELET COUNT, AUTOMATED 365 10^3/uL (150-450); RED BLOOD COUNT 4.35 10^6/uL (4.00-5.40); WHITE BLOOD COUNT 11.3 10^3/uL (4.0-10.0)
[2019-01-05 21:58] LABS: INFLUENZA A AMPLIFICATION NEGATIVE (NEGATIVE); INFLUENZA B AMPLIFICATION NEGATIVE (NEGATIVE)
[2019-01-05 22:23] VITALS: BP 132/61
== END 2019-01-05 22:25 | disposition home or self-care (01) ==
LOC: M ED 20:30
DX: L03.90 Cellulitis, unspecified (principal); Z88.0 Allergy status to penicillin; Z88.8 Allergy status to other drugs, medicaments and biological substances; Z79.82 Long term (current) use of aspirin; Z79.899 Other long term (current) drug therapy; L02.01 Cutaneous abscess of face

== ENCOUNTER → 2019-04-04 | Outpatient (CLI) | payer OTHER ==
[~2019-04-04] MED LIST changes: +ISOVUE-370 76% 100ML VIAL (Q9967) As Ordered ONE; -VERA100C PO; +VERA100C4 PO
--- NOTE | 2019-04-04 13:59 | REP ---
INDICATION: Neoplasm PROCEDURE: CT neck with contrast COMPARISON STUDIES: CT neck 05/27/2015. FINDINGS: Nasopharynx, oropharynx, hypopharynx and larynx appear unremarkable. Craniocervical junction appears unremarkable. There is a irregular appearance to the right maxillary sinus which appears largely opacified. The posterior wall of the right maxillary sinus appears somewhat depressed. The lateral wall appears also appears somewhat collapsed. The the patient is largely edentulous. Scattered cervical chain lymph nodes are seen without evidence of lymphadenopathy. Cervical spinal alignment within normal limits. 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 No definite canal stenosis although there is multilevel degenerative foraminal narrowing appears greater at the C4-5 and C5-6 levels on the left. CONCLUSION: The right maxillary sinus is partially opacified and appears somewhat collapsed when compared to the prior study of 05/27/2015. The appearance is probably post traumatic. Clinical correlation suggested. Other findings are consistent with degenerative changes without evidence of fracture or malalignment. Electronically Signed by Julien Martinez MD 04/04/2019 01:51 P
--- NOTE | 2019-04-04 14:30 | REP ---
INDICATION: Benign neoplasm? PROCEDURE: CT head with and without contrast COMPARISON STUDIES: CT head 07/05/2018 FINDINGS: No acute bleed or acute large vessel territorial infarct. Ventricles, cisterns and sulci within normal limits. No mass effect or midline shift. No abnormal fluid collections. There is an ossific thickening over the posterior right occipital skull. This is appears to be entirely limited to the to the cortical surface of the skull. There is no evidence of soft tissue involvement or underlying lesion. Following contrast, no abnormal enhancement. When compared to prior study from 07/05/2018, no definite changes. IMPRESSION: Stable appearance to osseous thickening of the cortical surface of the right occipital skull. Electronically Signed by Julien Martinez MD 04/04/2019 02:21 P
== END ==
LOC: M RAD 12:36
PROVIDERS: ATTEND Otolaryngology
DX: D16.4 Benign neoplasm of bones of skull and face (principal)
CPT/HCPCS: 70470; 70491; Q9967

== ENCOUNTER → 2019-05-12 | Outpatient (CLI) | payer OTHER ==
[~2019-05-12] MED LIST changes: -ISOVUE-370 76% 100ML VIAL (Q9967) As Ordered ONE
--- NOTE | 2019-05-12 18:11 | REPVR ---
PROCEDURE INFORMATION: Exam: CT Maxillofacial Without Contrast, Sinus Exam date and time: 05/12/2019 5:58 PM Age: 53 years old Clinical indication: Sinusitis; Chronic; Additional info: Chronic max sinusitis TECHNIQUE: Imaging protocol: CT Maxillofacial without contrast. Focus on the sinuses. Radiation optimization: All CT scans at this facility use at least one of these dose optimization techniques: automated exposure control; mA and/or kV adjustment per patient size (includes targeted exams where dose is matched to clinical indication); or iterative reconstruction. COMPARISON: No relevant prior studies available. FINDINGS: Frontal sinuses: Normal. No air-fluid levels. Ethmoid air cells: Normal. No air-fluid levels. Sphenoid sinuses: Small retention cyst left sphenoid sinus. Maxillary sinuses: Mild inflammatory changes in the right maxillary sinus including small retention cysts. Orbits: Orbits are normal. Globes are unremarkable. Nasal cavity/Septum: Anatomically narrowed ostiomeatal complex on the right. Unremarkable appearance of the ostiomeatal complex on the left. Soft tissues: Unremarkable. Bones/joints: Unremarkable. IMPRESSION: 1. Mild inflammatory changes in the right maxillary sinus including small retention cysts. 2. Anatomically narrowed ostiomeatal complex on the right. Unremarkable appearance of the ostiomeatal complex on the left. Electronically signed by: Cedrick Tan On 05/12/2019 18:10:46 PM
== END ==
LOC: M RAD 17:46
PROVIDERS: ATTEND Otolaryngology
DX: J32.0 Chronic maxillary sinusitis (principal)

== ENCOUNTER → 2019-05-30 | Outpatient (REF) | payer OTHER | LOC: M LAB REF 14:32 | PROVIDERS: ATTEND Physician Assistant Medical | DX: J32.0 Chronic maxillary sinusitis (principal) ==

== ENCOUNTER → 2019-09-23 | Outpatient (REF) | payer OTHER, MEDICAID ==
[2019-09-23 13:22] LABS: APPEARANCE, URINE HAZY (CLEAR); BACTERIA, URINE AUTO 1+ (NEGATIVE); BILIRUBIN, URINE AUTO NEGATIVE (NEGATIVE); BLOOD, URINE BLOOD 1+ (NEGATIVE); COLOR, URINE YELLOW (YELLOW); GLUCOSE, URINE (UA) AUTO NEGATIVE (NEGATIVE); KETONE, URINE AUTO NEGATIVE (NEGATIVE); LEUKOCYTE ESTERASE, URINE AUTO 3+ (NEGATIVE); MUCUS, URINE SMALL (NEGATIVE); NITRITE, URINE AUTO NEGATIVE (NEGATIVE); PROTEIN, URINE AUTO NEGATIVE (NEGATIVE); RBC, URINE AUTO 8 /HPF (0-3); SPECIFIC GRAVITY URINE AUTO 1.019 (1.002-1.035); SQUAMOUS EPITHELIAL CELL UR AU 9 /HPF (0-6); UROBILINOGEN, URINE AUTO 0.2 mg/dL (0.0-2.0); WBC, URINE AUTO 4 /HPF (0-3)
[2019-09-23 17:29] LABS: BASO # 0.1 10^3/uL (0.0-0.2); BASO % 0.8 % (0.0-1.0); EOS # 0.2 10^3/uL (0.0-0.5); EOS % 2.4 % (0.0-3.0); HEMATOCRIT 43.7 % (36.0-47.0); LYMPH # 2.8 10^3/uL (1.5-5.0); LYMPH % 30.9 % (24.0-44.0); MEAN CORPUSCULAR HEMOGLOBIN 29.8 pg (27.0-33.0); MONO # 0.5 10^3/uL (0.0-0.8); MONO % 5.4 % (0.0-5.0); NEUTROPHILS # 5.4 10^3/uL (1.5-8.5); NEUTROPHILS % 60.3 % (36.0-66.0); PLATELET COUNT, AUTOMATED 399 10^3/uL (150-450)
[2019-09-23 17:39] LABS: ALBUMIN 3.8 GM/DL (3.2-5.2); ALT/SGPT 27 U/L (12-78); BILIRUBIN,TOTAL 0.3 MG/DL (0.2-1.0); BLOOD UREA NITROGEN 16 MG/DL (7-18); CALCIUM LEVEL 9.6 MG/DL (8.5-10.1); CARBON DIOXIDE LEVEL 28 MEQ/L (21-32); CHLORIDE LEVEL 105 MEQ/L (98-107); CHOLESTEROL LEVEL 201 MG/DL (<200); CHOLESTEROL RISK RATIO 5.742 (<5); CREATININE FOR GFR 0.82 MG/DL (0.55-1.30); GLOMERULAR FILTRATION RATE > 60.0 (>51); GLUCOSE, FASTING 87 MG/DL (70-100); HDL CHOLESTEROL 35 MG/DL (>40); LDL CHOLESTEROL 129 MG/DL (<100); NON-HDL-C 166 MG/DL; POTASSIUM SERUM 4.8 MEQ/L (3.5-5.1); SODIUM LEVEL 138 MEQ/L (136-145); TOTAL PROTEIN 7.5 GM/DL (6.4-8.2); TRIGLYCERIDES LEVEL 184 MG/DL (<150)
[2019-09-23 17:57] LABS: HEMOGLOBIN A1c 5.8 %
== END ==
LOC: M LAB REF 12:30
PROVIDERS: ATTEND Nurse Practitioner Family
DX: R73.03 Prediabetes (principal); F17.200 Nicotine dependence, unspecified, uncomplicated; I10 Essential (primary) hypertension; E78.5 Hyperlipidemia, unspecified

== ENCOUNTER → 2019-12-15 | Outpatient (REF) | payer OTHER, MEDICAID ==
[2019-12-15 14:23] LABS: APPEARANCE, URINE CLEAR (CLEAR); BACTERIA, URINE AUTO NEGATIVE (NEGATIVE); BILIRUBIN, URINE AUTO NEGATIVE (NEGATIVE); BLOOD, URINE BLOOD 1+ (NEGATIVE); COLOR, URINE YELLOW (YELLOW); GLUCOSE, URINE (UA) AUTO NEGATIVE (NEGATIVE); KETONE, URINE AUTO NEGATIVE (NEGATIVE); LEUKOCYTE ESTERASE, URINE AUTO NEGATIVE (NEGATIVE); MUCUS, URINE SMALL (NEGATIVE); NITRITE, URINE AUTO NEGATIVE (NEGATIVE); PROTEIN, URINE AUTO NEGATIVE (NEGATIVE); RBC, URINE AUTO 1 /HPF (0-3); SPECIFIC GRAVITY URINE AUTO 1.019 (1.002-1.035); SQUAMOUS EPITHELIAL CELL UR AU 2 /HPF (0-6); UROBILINOGEN, URINE AUTO 0.2 mg/dL (0.0-2.0); WBC, URINE AUTO 1 /HPF (0-3)
== END ==
LOC: M LAB REF 12:51
PROVIDERS: ATTEND Physician Assistant
DX: R30.0 Dysuria (principal)

== ENCOUNTER → 2020-01-27 | Outpatient (REF) | payer OTHER, MEDICAID ==
[2020-01-27 17:20] LABS: BASO # 0.1 10^3/uL (0.0-0.2); BASO % 0.7 % (0.0-1.0); EOS # 0.2 10^3/uL (0.0-0.5); EOS % 1.5 % (0.0-3.0); HEMATOCRIT 41.7 % (36.0-47.0); HEMOGLOBIN 13.8 g/dl (12.0-15.5); LYMPH # 3.2 10^3/uL (1.5-5.0); LYMPH % 31.9 % (24.0-44.0); MEAN CORPUSCULAR HEMOGLOBIN 30.6 pg (27.0-33.0); MEAN CORPUSCULAR HGB CONC 33.1 g/dl (32.0-36.5); MEAN CORPUSCULAR VOLUME 92.5 fl (80.0-96.0); MONO # 0.7 10^3/uL (0.0-0.8); NEUTROPHILS # 5.8 10^3/uL (1.5-8.5); NEUTROPHILS % 58.7 % (36.0-66.0); PLATELET COUNT, AUTOMATED 446 10^3/uL (150-450); RED BLOOD COUNT 4.51 10^6/uL (4.00-5.40); WHITE BLOOD COUNT 9.9 10^3/uL (4.0-10.0)
[2020-01-27 17:45] LABS: ALBUMIN 3.9 GM/DL (3.2-5.2); ALT/SGPT 25 U/L (12-78); BILIRUBIN,TOTAL 0.5 MG/DL (0.2-1.0); BLOOD UREA NITROGEN 16 MG/DL (7-18); CALCIUM LEVEL 9.5 MG/DL (8.5-10.1); CARBON DIOXIDE LEVEL 26 MEQ/L (21-32); CHLORIDE LEVEL 108 MEQ/L (98-107); CHOLESTEROL LEVEL 173 MG/DL (<200); CHOLESTEROL RISK RATIO 5.088 (<5); CREATININE FOR GFR 0.88 MG/DL (0.55-1.30); GLOMERULAR FILTRATION RATE > 60.0 (>51); GLUCOSE, FASTING 103 MG/DL (70-100); HDL CHOLESTEROL 34 MG/DL (>40); LDL CHOLESTEROL 104 MG/DL (<100); NON-HDL-C 139 MG/DL; POTASSIUM SERUM 4.4 MEQ/L (3.5-5.1); SODIUM LEVEL 139 MEQ/L (136-145); TOTAL PROTEIN 7.3 GM/DL (6.4-8.2); TRIGLYCERIDES LEVEL 176 MG/DL (<150)
[2020-01-27 22:35] LABS: HEMOGLOBIN A1c 5.6 %
== END ==
LOC: M LAB REF 16:21
PROVIDERS: ATTEND Nurse Practitioner Family
DX: E78.5 Hyperlipidemia, unspecified (principal); R73.03 Prediabetes; I10 Essential (primary) hypertension; Z71.2 Person consulting for explanation of examination or test findings

== ENCOUNTER → 2020-01-28 | Outpatient (CLI) | payer OTHER ==
[~2020-01-28] MED LIST changes: +PROHANCE 279.3MG/ML 15ML VIAL As Ordered ONE
--- NOTE | 2020-01-28 15:21 | REP ---
INDICATION: OSTEOMA OF SKULL. COMPARISON: None. Comparison CT study of the brain April 04, 2019. Comparison is also made with May 12, [address] study.. TECHNIQUE: Axial and sagittal imaging planes are utilized for T1 and T2-weighted scans. Sequences include spin-echo, fast spin echo, FLAIR, and diffusion weighted sequences. Gadolinium enhancement dose is 12.6 mL of intravenous ProHance. Postcontrast imaging is obtained in all 3 planes with T1 weighting. FINDINGS: There is a focal thickening of the outer cortex of the right occipital bone again noted unchanged from the comparison CT study of April 04, 2019. The area in question measures 3.1 cm in greatest right to left dimension. There is no contrast enhancement in this lesion. The inner table is intact and uninvolved. This is consistent with a benign osteoma of the skull. The bony calvarium is otherwise intact. There is no MR evidence of significant paranasal sinus disease. No intraorbital abnormality is seen. The lateral, third, and fourth ventricles are normal in size and position. Douglass-white differentiation pattern is intact above and below the tentorium. There is no evidence of intracranial hemorrhage. No mass, infarction, extra-axial fluid collection or midline shift is seen. No abnormal white matter lesion is seen. Diffusion-weighted scans show no evidence of restricted diffusion to suggest acute ischemia. Postcontrast imaging shows no abnormal intracranial contrast enhancement. 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 No acute intracranial abnormality. No abnormal contrast enhancement.. <Electronically signed by Subhash Garcias > 01/28/20 [id number]
== END ==
LOC: M RAD 11:03
PROVIDERS: ATTEND Neurological Surgery
DX: D16.4 Benign neoplasm of bones of skull and face (principal)
CPT/HCPCS: 70553; A9576

== ENCOUNTER → 2020-04-12 | Outpatient (CLI) | payer OTHER ==
[~2020-04-12] MED LIST changes: -ALEN70TA74 PO; +ALEN70TA82 PO; -PROHANCE 279.3MG/ML 15ML VIAL As Ordered ONE
--- NOTE | 2020-04-12 15:51 | REP ---
INDICATION: Z12.39 SCREENING MAMMO. COMPARISON: 04/09/2019 as well as other prior exams. TECHNIQUE: MLO and CC views bilateral breasts with tomosynthesis. FINDINGS: Moderate fibroglandular tissue scattered bilaterally. There is a stable well-circumscribed nodule in the upper left breast with an adjacent biopsy clip. There is a new oval fairly well-circumscribed nodule in the upper inner left breast with a maximum diameter of 9 mm. There is no other evidence of new mass or clustered microcalcifications. The Volpara volumetric breast density pattern is B. IMPRESSION: BIRADS/ACR category 0, incomplete. New oval well-circumscribed nodule upper inner left breast. Recommend spot compression views and ultrasound to further evaluate. This patient's Tyrer-Cuzick lifetime breast cancer risk assessment score is 8.2%. This mammogram was interpreted with the aid of an FDA-approved computer-aided detection system. The patient states she had a clinical breast exam in over 1 year ago. The patient letter being requested is M0. RECOMMENDATION: Recommend spot compression views and ultrasound left breast as discussed above. <Electronically signed by Gwyn Douglass > 04/12/20 [id number]
== END ==
LOC: M WHC 13:40
PROVIDERS: ATTEND Nurse Practitioner Family
DX: Z12.31 Encounter for screening mammogram for malignant neoplasm of breast (principal); N63.22 Unspecified lump in the left breast, upper inner quadrant

== ENCOUNTER → 2020-04-30 | Outpatient (CLI) | payer OTHER ==
--- NOTE | 2020-04-30 15:26 | REP ---
INDICATION: ADDL VIEWS LEFT BREAST/LEFT BREAST NODULE; LEFT BREAST NODULE. Screening mammography from 12 April 2020 BI-RADS category 0 incomplete because of a nodular beny density in the left breast. Diagnostic imaging was recommended. COMPARISON: Comparison left breast mammography 09 April 2019 21 March 2018 are also reviewed. TECHNIQUE: Magnified focal spot-compression CC, mL, and MLO views of the left breast are obtained. And ML projection 3D tomography was acquired. Targeted left breast sonography was performed. This mammogram was interpreted with the aid of an FDA-approved computer-aided detection system. FINDINGS: Mammographic images confirm the presence of a nodular beny density 7 mm in greatest diameter with well-defined margins in the superomedial quadrant of the left breast. There is a mole which projects in the superomedial quadrant of the left breast as well and a previously biopsied well-circumscribed nodule is seen at 12 o'clock in the left breast within the Jimmie marker clip. Scattered fibroglandular elements are seen. No other significant mammographic finding. Targeted ultrasound: Left breast superomedial quadrant demonstrates a complex cystic structure with internal echoes and a septation at 11 o'clock, 5 cm from the nipple. This measures 8 x 7 x 4 mm. Its long axis is parallel to the skin. This does not meet criteria of simple cyst. IMPRESSION: BIRADS/ACR category 4 suspicious left breast mammographic and sonographic findings. Findings most compatible with complex cyst. Histologic sampling recommended. This patient's Tyrer-Cuzick lifetime breast cancer risk assessment score is 8.2%. RECOMMENDATION: Ultrasound-guided needle aspiration biopsy with clip placement and post clip placement mammography recommended left breast.. The patient letter being requested is M4. <Electronically signed by Subhash Garcias > 04/30/20 [id number]
== END ==
LOC: M WHC 13:01
PROVIDERS: ATTEND Nurse Practitioner Family
DX: N63.25 Unspecified lump in the left breast, overlapping quadrants (principal)
CPT/HCPCS: 76642; 77065; G0279

== ENCOUNTER → 2020-05-17 | Outpatient (CLI) | payer OTHER ==
[~2020-05-17] MED LIST changes: +ISOVUE-370 76% 100ML VIAL As Ordered ONE
--- NOTE | 2020-05-17 17:46 | REP ---
INDICATION: ABNOMAL WEIGHT LOSS, FAM HX OF COLON CA. COMPARISON: Comparison CT study June 23, 2018.. TECHNIQUE: Helical scanning was acquired and 4 mm axial images are re-formatted. Coronal and sagittal MPR images were generated and reviewed. The contrast enhancement dose is 100 mL of intravenous Isovue 370. FINDINGS: Digital preliminary cloth stock sorter radiograph demonstrates a normal bowel gas pattern. There are clips in right upper quadrant. The lung bases are clear on axial CT images. There is a small hemangioma anteriorly in the right lobe of the liver 8 mm in diameter unchanged from the June 23, 2018 prior study. No new focal liver lesion is appreciated. There is a tiny 4 mm cyst inferiorly in the right lobe. There are small peripheral cysts in the anterior margin of the spleen. These are noted previously. One of them has regressed in the interval since the 2018 study. Normal adrenal glands are observed bilaterally. Post cholecystectomy clips are noted. No pancreatic mass or cyst is seen. The kidneys enhance symmetrically and are morphologically intact on pre and postcontrast imaging. There is a 3 mm intrarenal calculus in the lower pole collecting system on the right kidney. There is a 3 mm calculus in the upper pole collecting system in the left kidney. No hydronephrosis is seen on either side. No retroperitoneal mass or adenopathy is seen. No small bowel mesenteric adenopathy is appreciated. No pelvic adenopathy is noted. The uterus and appendix are surgically absent. No adnexal abnormality is seen. Urinary bladder is largely empty but appears intact. No abdominal wall defect is seen. Bone window settings show no bony destructive lesion. Normal caliber aorta is seen. IMPRESSION: Small stable peripheral cysts in the spleen essentially unchanged. Post cholecystectomy. Stable hemangioma the liver. No evidence of mass or adenopathy. <Electronically signed by Subhash Garcias > 05/17/20 [id number]
== END ==
LOC: M RAD 13:52
PROVIDERS: ATTEND Physician Assistant Medical
DX: R63.4 Abnormal weight loss (principal); R19.4 Change in bowel habit; Z80.0 Family history of malignant neoplasm of digestive organs
CPT/HCPCS: 74177; Q9967

== ENCOUNTER → 2020-06-07 | Outpatient (REF) | payer OTHER ==
[~2020-06-07] MED LIST changes: -ISOVUE-370 76% 100ML VIAL As Ordered ONE; +NAPR-849 PO; -NAPR250T4 PO
[2020-06-07 17:37] LABS: BASO # 0.1 10^3/uL (0.0-0.2); BASO % 0.5 % (0.0-1.0); EOS # 0.1 10^3/uL (0.0-0.5); EOS % 1.1 % (0.0-3.0); HEMATOCRIT 43.5 % (36.0-47.0); HEMOGLOBIN 14.1 g/dl (12.0-15.5); LYMPH # 2.5 10^3/uL (1.5-5.0); LYMPH % 26.1 % (24.0-44.0); MEAN CORPUSCULAR HEMOGLOBIN 30.6 pg (27.0-33.0); MEAN CORPUSCULAR HGB CONC 32.4 g/dl (32.0-36.5); MEAN CORPUSCULAR VOLUME 94.4 fl (80.0-96.0); MONO # 0.6 10^3/uL (0.0-0.8); MONO % 6.2 % (2.0-8.0); NEUTROPHILS # 6.3 10^3/uL (1.5-8.5); NEUTROPHILS % 65.8 % (36.0-66.0); PLATELET COUNT, AUTOMATED 401 10^3/uL (150-450); RED BLOOD COUNT 4.61 10^6/uL (4.00-5.40); WHITE BLOOD COUNT 9.7 10^3/uL (4.0-10.0)
[2020-06-07 18:02] LABS: HEMOGLOBIN A1c 5.4 %
[2020-06-07 18:18] LABS: ALBUMIN 4.1 GM/DL (3.2-5.2); ALT/SGPT 16 U/L (12-78); BILIRUBIN,TOTAL 0.7 MG/DL (0.2-1.0); BLOOD UREA NITROGEN 18 MG/DL (7-18); CALCIUM LEVEL 9.2 MG/DL (8.5-10.1); CARBON DIOXIDE LEVEL 27 MEQ/L (21-32); CHLORIDE LEVEL 107 MEQ/L (98-107); CHOLESTEROL LEVEL 158 MG/DL (<200); CHOLESTEROL RISK RATIO 3.853 (<5); CREATININE FOR GFR 0.88 MG/DL (0.55-1.30); FREE T4 0.98 NG/DL (0.76-1.46); GLOMERULAR FILTRATION RATE > 60.0 (>51); GLUCOSE, FASTING 79 MG/DL (70-100); HDL CHOLESTEROL 41 MG/DL (>40); LDL CHOLESTEROL 93 MG/DL (<100); NON-HDL-C 117 MG/DL; POTASSIUM SERUM 4.3 MEQ/L (3.5-5.1); SODIUM LEVEL 140 MEQ/L (136-145); TOTAL 25(OH) VITAMIN D 22.9 NG/ML (30.0-100.0); TOTAL PROTEIN 7.1 GM/DL (6.4-8.2); TRIGLYCERIDES LEVEL 118 MG/DL (<150)
== END ==
LOC: M LAB REF 16:38
PROVIDERS: ATTEND Nurse Practitioner Family
DX: F41.9 Anxiety disorder, unspecified (principal); F17.200 Nicotine dependence, unspecified, uncomplicated; I10 Essential (primary) hypertension

== ENCOUNTER → 2020-06-17 | Outpatient (REF) | payer OTHER ==
[2020-06-17 17:59] LABS: APPEARANCE, URINE CLEAR (CLEAR); BACTERIA, URINE AUTO NEGATIVE (NEGATIVE); BILIRUBIN, URINE AUTO NEGATIVE (NEGATIVE); BLOOD, URINE BLOOD 1+ (NEGATIVE); COLOR, URINE YELLOW (YELLOW); GLUCOSE, URINE (UA) AUTO NEGATIVE (NEGATIVE); KETONE, URINE AUTO NEGATIVE (NEGATIVE); LEUKOCYTE ESTERASE, URINE AUTO NEGATIVE (NEGATIVE); MUCUS, URINE SMALL (NEGATIVE); NITRITE, URINE AUTO NEGATIVE (NEGATIVE); PROTEIN, URINE AUTO 1+ mg/dL (NEGATIVE); RBC, URINE AUTO 3 /HPF (0-3); SQUAMOUS EPITHELIAL CELL UR AU 0 /HPF (0-6); UROBILINOGEN, URINE AUTO 0.2 mg/dL (0.0-2.0); WBC, URINE AUTO 2 /HPF (0-3)
== END ==
LOC: M LAB REF 16:48
PROVIDERS: ATTEND Nurse Practitioner Family
DX: N20.2 Calculus of kidney with calculus of ureter (principal)

== ENCOUNTER → 2020-07-14 | Outpatient (CLI) | payer OTHER ==
[~2020-07-14] MED LIST changes: +MELO15TA28 PO; +SERT-141 PO
[2020-07-14 14:58] VITALS: BP 122/80
--- NOTE | 2020-07-14 16:21 | REP ---
INDICATION: R92.8 ABN MAMMO LT BREAST,POST US GUIDED BX/ASPIRATION; R92.8 ABN MAMMO LT BREAST, POST US GUIDED BX/ASPIRATION. Patient is status post cyst aspiration under ultrasound guidance for a complex cystic lesion noted previously in the 11 o'clock position. COMPARISON: Comparison left breast mammography April 30, 2020 and April 12, 2020. TECHNIQUE: Craniocaudal and mediolateral oblique views of the left breast are obtained with 3D tomography. This mammogram was interpreted with the aid of an FDA-approved computer-aided detection system. FINDINGS: Repeat two view left breast mammogram demonstrates the previously noted stable nodule in the left breast upper outer quadrant region with an adjacent needle biopsy marker clip. This is unchanged. The recently noted superomedial quadrant nodule has resolved post aspiration. No other mammographic abnormality. The Volpara volumetric breast density pattern is b. IMPRESSION: BIRADS/ACR category 2 benign left breast mammographic findings.. This patient's Tyrer-Cuzick lifetime breast cancer risk assessment score is 8.2%. RECOMMENDATION: Repeat screening mammography recommended 1 year (for women over 40). The patient letter being requested is M2. <Electronically signed by Subhash Garcias > 07/14/20 [id number]
--- NOTE | 2020-07-14 16:26 | ROOPDOC ---
[facility] Report Of Operation Report of Operation Date of the procedure:07/14/20 Diagnosis:Left breast complex cyst Procedure:Ultrasound guided aspiration of Left breast complex cyst Proceduralist: Jacobo Lind D.O. EBL: minimal Lidocaine 1% LOT [id number] Expiration: 02/2021 Sodium Bicarbonate 8.4% LOT [id number] Expiration: 04/2021 Procedure details: Informed consent was obtained. The most common risk and possible complications including bleeding, hematoma, bruising, infection, injury to surrounding structures were explained to the patient and she expressed understanding. Patient was taken to the procedure room and placed on the bed in the supine position with the left upper extremity placed above the head. Appropriate time out was done stating patients name, date of , and the procedure to be performed. The left breast was prepped and draped in the usual fashion. The ultrasound was used to confirm the location of the complex cystic lesion in the left breast at 11:00 5 centimeters from the nipple. Plain Lidocaine 1% and 8.4% sodium bicarbonate 10:1 mix was used to anesthetize the skin, and tissues along the anticipated aspiration tract. 18 G needle was used to aspirate cyst under direct ultrasound guidance. 1 cc of milky/ cloudy fluid was aspirated. This was sent for cytology. The cyst completely collapsed and images were captured. Manual pressure over the cyst aspiration site and tract was held. No bleeding was noted upon removal of the pressure. Post procedure left breast mammogram showed resolution of the left breast lesion. Patient tolerated procedure well. Discharge instructions were discussed with the patient and she expressed understanding. JACOBO LIND DO Jul 14, 2020 16:26
--- NOTE | 2020-07-15 08:02 | REP ---
INDICATION: R92.8 ABN MAMMO LT BREAST,US GUIDED BX/ASPIRATION. COMPARISON: Comparison sonography April 30, 2020.. TECHNIQUE: Sonographic guidance. FINDINGS: Ultrasound guidance is provided to Dr. Jensen performed a left breast cyst aspiration under ultrasound guidance. IMPRESSION: Procedural imaging. <Electronically signed by Subhash Garcias > 07/15/20 075
== END ==
LOC: M WHCPRO 08:09
PROVIDERS: ATTEND Surgery
DX: N60.02 Solitary cyst of left breast (principal); R92.8 Other abnormal and inconclusive findings on diagnostic imaging of breast
CPT/HCPCS: 19000; 76942; 77065; G0279

== ENCOUNTER → 2020-08-06 | Outpatient (CLI) | payer OTHER ==
--- NOTE | 2020-08-08 08:58 | REP ---
INDICATION: KIDNEY STONES COMPARISON: 05/17/2020 TECHNIQUE: Axial noncontrast images from the lung bases to the pubic symphysis with coronal and sagittal reformations. This CT examination was performed using the following dose reduction techniques: Automated exposure control, adjustment of mA and/or kv according to the patient's size, and use of iterative reconstruction technique. FINDINGS: Lung bases are clear. Visualized heart and pericardium normal. Liver, spleen, pancreas, bilateral adrenal glands and right kidney are normal by noncontrast evaluation. Small splenic hypodensities consistent with previously noted cysts again identified. 3 mm nonobstructing left renal calculus noted. No right renal calcification identified. There is no perinephric stranding or hydroureteronephrosis. The enteric system is unremarkable and without obstruction or acute inflammatory process. Few scattered sigmoid diverticula noted without acute diverticulitis. Pelvis demonstrates normal bladder and evidence for prior hysterectomy. No ascites. No free air. No adenopathy. No focal inflammatory stranding. Abdominal aorta without aneurysm. Musculoskeletal structures are intact and without acute osseous abnormality. IMPRESSION: 1. No acute abdominopelvic pathology appreciated by noncontrast CT evaluation. 2. 3 mm nonobstructing left renal calculus. No obvious right renal calculus identified. <Electronically signed by Nicko Gomez > 08/08/20 [id number]
== END ==
LOC: M RAD 13:45
PROVIDERS: ATTEND Nurse Practitioner Family
DX: N20.0 Calculus of kidney (principal)

== ENCOUNTER → 2021-10-20 | Outpatient (CLI) | payer OTHER | LOC: M RAD 11:34 | PROVIDERS: ATTEND Family Medicine Addiction Medicine | DX: M25.561 Pain in right knee (principal) ==

== ENCOUNTER → 2021-11-07 | Outpatient (CLI) | payer OTHER | LOC: M PLAIMG 07:12 | PROVIDERS: ATTEND Family Medicine Addiction Medicine | DX: S83.271A Complex tear of lateral meniscus, current injury, right knee, initial encounter (principal); X58.XXXA Exposure to other specified factors, initial encounter; Y92.9 Unspecified place or not applicable ==

== ENCOUNTER → 2022-03-13 | Outpatient (REF) | payer OTHER ==
[~2022-03-13] MED LIST changes: -DOXY-350; +DOXY-444
[2022-03-13 13:45] LABS: ALBUMIN 3.9 G/DL (3.2-5.2); ALKALINE PHOSPHATASE 121 U/L (46-116); ALT/SGPT 24 U/L (7.0-40); AST/SGOT 26 U/L (<34); BILIRUBIN,TOTAL 0.5 MG/DL (0.3-1.2); BLOOD UREA NITROGEN 18 MG/DL (9-23); CALCIUM LEVEL 9.5 MG/DL (8.5-10.1); CARBON DIOXIDE LEVEL 24 MMOL/L (20-31); CHLORIDE LEVEL 107 MMOL/L (98-107); CHOLESTEROL LEVEL 195 MG/DL (<200); CHOLESTEROL RISK RATIO 4.31 (<5); CREATININE FOR GFR 0.78 MG/DL (0.55-1.30); GLOMERULAR FILTRATION RATE > 60.0 (>51); GLUCOSE, FASTING 92 MG/DL (60-100); HDL CHOLESTEROL 45.2 MG/DL (>40); NON-HDL-C 150 MG/DL; POTASSIUM SERUM 4.9 MMOL/L (3.5-5.1); SODIUM LEVEL 140 MMOL/L (136-145); TOTAL PROTEIN 6.9 G/DL (5.7-8.2); TRIGLYCERIDES LEVEL 104 MG/DL (<150)
[2022-03-13 13:46] LABS: THYROID STIMULATING HORMONE 2.013 uIU/ML (0.55-4.78)
== END ==
LOC: M LAB REF 12:31
PROVIDERS: ATTEND Family Medicine Addiction Medicine
DX: E78.5 Hyperlipidemia, unspecified (principal)

== ENCOUNTER → 2022-04-25 | Outpatient (RCR) | payer OTHER | LOC: M PT 04-13 12:43 | PROVIDERS: ATTEND Orthopaedic Surgery | DX: M23.300 Other meniscus derangements, unspecified lateral meniscus, right knee (principal) ==

== ENCOUNTER 2022-05-11 14:40 | Outpatient (RCR) | payer OTHER | END 2022-05-23 | LOC: M PT 14:40 | PROVIDERS: ATTEND Orthopaedic Surgery | DX: M23.300 Other meniscus derangements, unspecified lateral meniscus, right knee (principal) ==

== ENCOUNTER 2022-05-26 15:45 | Outpatient (RCR) | payer OTHER | END 2022-06-23 | LOC: M PT 15:45 | PROVIDERS: ATTEND Orthopaedic Surgery | DX: M23.300 Other meniscus derangements, unspecified lateral meniscus, right knee (principal) ==

== ENCOUNTER → 2022-06-05 | Outpatient (REF) | payer OTHER ==
[2022-06-07 16:10] LABS: GC DNA AMPLIFICATION NEGATIVE (NEGATIVE)
== END ==
LOC: M LAB REF 11:22
PROVIDERS: ATTEND Nurse Practitioner Family
DX: R30.0 Dysuria (principal)

== ENCOUNTER → 2022-06-29 | Outpatient (REF) | payer OTHER ==
[2022-06-29 17:18] LABS: ALBUMIN 3.9 G/DL (3.2-5.2); ALKALINE PHOSPHATASE 115 U/L (46-116); ALT/SGPT 16 U/L (7.0-40); AST/SGOT < 8 U/L (<34); BILIRUBIN,TOTAL 0.5 MG/DL (0.3-1.2); BLOOD UREA NITROGEN 16 MG/DL (9-23); CALCIUM LEVEL 9.4 MG/DL (8.5-10.1); CARBON DIOXIDE LEVEL 29 MMOL/L (20-31); CHLORIDE LEVEL 107 MMOL/L (98-107); CHOLESTEROL LEVEL 179 MG/DL (<200); CHOLESTEROL RISK RATIO 3.88 (<5); CREATININE FOR GFR 0.75 MG/DL (0.55-1.30); GLOMERULAR FILTRATION RATE > 60.0 (>51); GLUCOSE, FASTING 88 MG/DL (60-100); HDL CHOLESTEROL 46.1 MG/DL (>40); LDL CHOLESTEROL 108.1 MG/DL (<100); NON-HDL-C 132.9 MG/DL; POTASSIUM SERUM 4.4 MMOL/L (3.5-5.1); SODIUM LEVEL 142 MMOL/L (136-145); TOTAL PROTEIN 6.9 G/DL (5.7-8.2); TRIGLYCERIDES LEVEL 124 MG/DL (<150)
[2022-06-29 17:20] LABS: THYROID STIMULATING HORMONE 0.951 uIU/ML (0.55-4.78)
[2022-06-29 17:28] LABS: HEMOGLOBIN A1c 5.4 % (4.0-6.0)
== END ==
LOC: M LAB REF 16:16
PROVIDERS: ATTEND Family Medicine Addiction Medicine
DX: R73.03 Prediabetes (principal)

== ENCOUNTER 2022-10-05 08:02 | Day surgery (SDC) | payer OTHER ==
[~2022-10-05] VITALS: Ht 162.6 cm; Wt 64.5 kg
[~2022-10-05 08:02] MED LIST changes: +ACET-897 PO; +DICL1GEL3 TOP; +LIDOCAINE 2% 100MG/5ML SDV (FOR ANES.) As Ordered ONE; +NS 1,000 ML IV ONE; +propofoL 200 MG/20 ML VIAL As Ordered ONE
[2022-10-05 10:59] VITALS: BP 145/84; TEMP 98.4; O2SAT 100
== END 2022-10-05 11:26 | disposition home or self-care (01) ==
LOC: M OPP 08:02
PROVIDERS: ATTEND Internal Medicine Gastroenterology
DX: Z12.11 Encounter for screening for malignant neoplasm of colon (principal); Z86.010 Personal history of colon polyps; Z80.0 Family history of malignant neoplasm of digestive organs; K63.5 Polyp of colon; D50.9 Iron deficiency anemia, unspecified; K64.8 Other hemorrhoids; K55.20 Angiodysplasia of colon without hemorrhage; F17.200 Nicotine dependence, unspecified, uncomplicated; Z79.1 Long term (current) use of non-steroidal anti-inflammatories (NSAID); Z79.2 Long term (current) use of antibiotics; Z79.82 Long term (current) use of aspirin; Z88.0 Allergy status to penicillin; Z88.8 Allergy status to other drugs, medicaments and biological substances; Z91.041 Radiographic dye allergy status

== ENCOUNTER → 2023-02-19 | Outpatient (REF) | payer OTHER ==
[~2023-02-19] MED LIST changes: +DICL100G10 TOP; -DICL1GEL3 TOP; -LIDOCAINE 2% 100MG/5ML SDV (FOR ANES.) As Ordered ONE; -NS 1,000 ML IV ONE; -propofoL 200 MG/20 ML VIAL As Ordered ONE
[2023-02-19 17:01] LABS: ALKALINE PHOSPHATASE 126 U/L (46-116); ALT/SGPT 18 U/L (7.0-40); AST/SGOT 13 U/L (<34); BILIRUBIN,TOTAL 0.5 MG/DL (0.3-1.2); BLOOD UREA NITROGEN 15 MG/DL (9-23); CALCIUM LEVEL 9.6 MG/DL (8.5-10.1); CARBON DIOXIDE LEVEL 28 MMOL/L (20-31); CHLORIDE LEVEL 106 MMOL/L (98-107); CHOLESTEROL LEVEL 195 MG/DL (<200); CHOLESTEROL RISK RATIO 4.29 (<5); CREATININE FOR GFR 0.68 MG/DL (0.55-1.30); GLOMERULAR FILTRATION RATE > 60.0 (>51); GLUCOSE, FASTING 90 MG/DL (60-100); HDL CHOLESTEROL 45.4 MG/DL (>40); NON-HDL-C 149.6 MG/DL; POTASSIUM SERUM 4.7 MMOL/L (3.5-5.1); SODIUM LEVEL 143 MMOL/L (136-145); TOTAL PROTEIN 7.2 G/DL (5.7-8.2); TRIGLYCERIDES LEVEL 118 MG/DL (<150)
[2023-02-19 17:06] LABS: THYROID STIMULATING HORMONE 1.752 uIU/ML (0.55-4.78)
== END ==
LOC: M LAB REF 16:22
PROVIDERS: ATTEND Family Medicine Addiction Medicine
DX: I10 Essential (primary) hypertension (principal)

== ENCOUNTER → 2023-06-06 | Outpatient (REF) | payer OTHER ==
[2023-06-06 17:42] LABS: ALBUMIN 3.7 G/DL (3.2-5.2); ALKALINE PHOSPHATASE 126 U/L (46-116); ALT/SGPT 14 U/L (7.0-40); AST/SGOT 8 U/L (<34); BILIRUBIN,TOTAL 0.5 MG/DL (0.3-1.2); BLOOD UREA NITROGEN 12 MG/DL (9-23); CARBON DIOXIDE LEVEL 27 MMOL/L (20-31); CHLORIDE LEVEL 109 MMOL/L (98-107); CHOLESTEROL LEVEL 159 MG/DL (<200); CHOLESTEROL RISK RATIO 4.14 (<5); CREATININE FOR GFR 0.73 MG/DL (0.55-1.30); GLOMERULAR FILTRATION RATE > 60.0 (>51); GLUCOSE, FASTING 86 MG/DL (60-100); HDL CHOLESTEROL 38.4 MG/DL (>40); LDL CHOLESTEROL 94.4 MG/DL (<100); NON-HDL-C 120.6 MG/DL; POTASSIUM SERUM 4.9 MMOL/L (3.5-5.1); SODIUM LEVEL 141 MMOL/L (136-145); THYROID STIMULATING HORMONE 1.658 uIU/ML (0.55-4.78); TOTAL PROTEIN 6.8 G/DL (5.7-8.2); TRIGLYCERIDES LEVEL 131 MG/DL (<150)
== END ==
LOC: M LAB REF 16:18
PROVIDERS: ATTEND Family Medicine Addiction Medicine
DX: I10 Essential (primary) hypertension (principal)

== ENCOUNTER → 2023-06-14 | Outpatient (REF) | payer OTHER ==
[2023-06-14 16:53] LABS: BASO # 0.1 10^3/uL (0.0-0.2); BASO % 0.5 % (0.0-1.0); EOS # 0.2 10^3/uL (0.0-0.5); EOS % 1.9 % (0.0-3.0); HEMATOCRIT 43.7 % (36.0-47.0); HEMOGLOBIN 14.6 g/dl (12.0-15.5); LYMPH # 3.8 10^3/uL (1.5-5.0); LYMPH % 33.5 % (24.0-44.0); MEAN CORPUSCULAR HEMOGLOBIN 30.9 pg (27.0-33.0); MEAN CORPUSCULAR HGB CONC 33.4 g/dl (32.0-36.5); MEAN CORPUSCULAR VOLUME 92.6 fl (80.0-96.0); MONO # 0.8 10^3/uL (0.0-0.8); MONO % 7.1 % (2.0-8.0); NEUTROPHILS # 6.4 10^3/uL (1.5-8.5); NEUTROPHILS % 56.7 % (36.0-66.0); PLATELET COUNT, AUTOMATED 397 10^3/uL (150-450); RED BLOOD COUNT 4.72 10^6/uL (4.00-5.40); WHITE BLOOD COUNT 11.2 10^3/uL (4.0-10.0)
== END ==
LOC: M LAB REF 16:17
PROVIDERS: ATTEND Family Medicine Addiction Medicine
DX: R53.83 Other fatigue (principal)

== ENCOUNTER 2023-06-28 06:05 | Day surgery (SDC) | payer OTHER ==
[~2023-06-28] VITALS: Ht 160 cm; Wt 67.2 kg
[2023-06-28] MEDS ORDERED: LR 1,000 ML IV SCH (07:30)
[2023-06-28] MEDS: LIDOCAINE 1% MDV 20ML VIAL As Ordered ONE (07:35)
[2023-06-28] MEDS ORDERED: propofoL 200 MG/20 ML VIAL As Ordered ONE (07:41)
[2023-06-28] MEDS ORDERED: fentaNYL 100 MCG/2 ML INJECTION As Ordered ONE (07:41)
[2023-06-28] MEDS ORDERED: MIDAZOLAM INJ 2MG/2ML VIAL As Ordered ONE (07:41)
[2023-06-28] MEDS ORDERED: ONDANSETRON 4MG 2ML VIAL As Ordered ONE (07:48)
[2023-06-28] MEDS ORDERED: KETOROLAC 60MG 2ML VIAL As Ordered ONE (07:48)
[2023-06-28] MEDS: ceFAZolin SOD 2 GM in IV 1 EA IV ONE (08:01)
[2023-06-28 08:51] VITALS: BP 134/71; TEMP 96.8; O2SAT 99
== END 2023-06-28 08:51 | disposition home or self-care (01) ==
LOC: M SDC 06:05
PROVIDERS: ATTEND Podiatrist Foot & Ankle Surgery
DX: M20.5X1 Other deformities of toe(s) (acquired), right foot (principal); L84 Corns and callosities; F17.210 Nicotine dependence, cigarettes, uncomplicated; Z79.899 Other long term (current) drug therapy; Z88.0 Allergy status to penicillin; Z88.8 Allergy status to other drugs, medicaments and biological substances
CPT/HCPCS: 28110; 88300; J0665; J0690; J1100; J1885; J2250; J2405; J3010

== ENCOUNTER → 2023-10-30 | Outpatient (CLI) | payer OTHER ==
[~2023-10-30] MED LIST changes: +DOXY-440; -DOXY-444; +ONDA-282 PO; -ONDA4TAB6 PO
== END ==
LOC: M WHC 10:21
PROVIDERS: ATTEND Family Medicine Addiction Medicine
DX: Z12.31 Encounter for screening mammogram for malignant neoplasm of breast (principal)

== ENCOUNTER → 2023-12-10 | Outpatient (CLI) | payer OTHER | LOC: M PLAIMG 09:55 | PROVIDERS: ATTEND Family Medicine Addiction Medicine | DX: M25.551 Pain in right hip (principal) ==

== ENCOUNTER 2024-02-11 14:15 | Outpatient (RCR) | payer OTHER | END 2024-02-23 | LOC: M PT 14:15 | PROVIDERS: ATTEND Orthopaedic Surgery | DX: M25.551 Pain in right hip (principal) ==

== ENCOUNTER → 2024-02-15 | Outpatient (CLI) | payer OTHER | LOC: M SOG 07:58 | PROVIDERS: ATTEND Orthopaedic Surgery | DX: M25.551 Pain in right hip (principal) ==

== ENCOUNTER 2024-03-03 13:24 | Outpatient (RCR) | payer OTHER | END 2024-03-25 | LOC: M PT 13:24 | PROVIDERS: ATTEND Orthopaedic Surgery | DX: M25.551 Pain in right hip (principal) ==

== ENCOUNTER 2024-04-16 13:30 | Outpatient (RCR) | payer OTHER | END 2024-04-25 | LOC: M PT 13:30 | PROVIDERS: ATTEND Orthopaedic Surgery | DX: M25.551 Pain in right hip (principal) ==

== ENCOUNTER → 2024-05-02 | Outpatient (CLI) | payer OTHER | LOC: M PLAIMG 10:02 | PROVIDERS: ATTEND Family Medicine Addiction Medicine | DX: R63.4 Abnormal weight loss (principal); R91.1 Solitary pulmonary nodule ==

== ENCOUNTER → 2024-05-16 | Outpatient (REF) | payer OTHER ==
[2024-05-16 14:30] LABS: BASO # 0.1 10^3/uL (0.0-0.2); BASO % 0.5 % (0.0-1.0); EOS # 0.1 10^3/uL (0.0-0.5); EOS % 0.8 % (0.0-3.0); HEMATOCRIT 41.8 % (36.0-47.0); LYMPH # 2.7 10^3/uL (1.5-5.0); LYMPH % 29.2 % (24.0-44.0); MEAN CORPUSCULAR HEMOGLOBIN 31.5 pg (27.0-33.0); MEAN CORPUSCULAR HGB CONC 33.5 g/dl (32.0-36.5); MEAN CORPUSCULAR VOLUME 93.9 fl (80.0-96.0); MONO # 0.5 10^3/uL (0.0-0.8); MONO % 5.7 % (2.0-8.0); NEUTROPHILS # 5.9 10^3/uL (1.5-8.5); NEUTROPHILS % 63.5 % (36.0-66.0); PLATELET COUNT, AUTOMATED 384 10^3/uL (150-450); RED BLOOD COUNT 4.45 10^6/uL (4.00-5.40); WHITE BLOOD COUNT 9.3 10^3/uL (4.0-10.0)
[2024-05-16 14:35] LABS: ALBUMIN 3.7 G/DL (3.2-5.2); ALKALINE PHOSPHATASE 109 U/L (35-104); ALT/SGPT 13 U/L (7.0-40); AST/SGOT 12 U/L (<34); BILIRUBIN,TOTAL 0.4 MG/DL (0.3-1.2); BLOOD UREA NITROGEN 22 MG/DL (9-23); CALCIUM LEVEL 9.9 MG/DL (8.3-10.6); CARBON DIOXIDE LEVEL 27 MMOL/L (20-31); CHLORIDE LEVEL 107 MMOL/L (98-107); CHOLESTEROL LEVEL 149 MG/DL (<200); CHOLESTEROL RISK RATIO 2.71 (<5); CREATININE FOR GFR 0.76 MG/DL (0.55-1.30); GLOMERULAR FILTRATION RATE > 60.0 (>45); GLUCOSE, FASTING 99 MG/DL (74-106); HDL CHOLESTEROL 54.8 MG/DL (>40); LDL CHOLESTEROL 81.2 MG/DL (<100); NON-HDL-C 94.2 MG/DL; POTASSIUM SERUM 4.8 MMOL/L (3.5-5.1); SODIUM LEVEL 142 MMOL/L (136-145); THYROID STIMULATING HORMONE 1.988 uIU/ML (0.55-4.78); TOTAL PROTEIN 6.9 G/DL (5.7-8.2); TRIGLYCERIDES LEVEL 65 MG/DL (<150)
[2024-05-16 14:37] LABS: FREE T4 1.36 NG/DL (0.89-1.76)
== END ==
LOC: M LAB REF 12:11
PROVIDERS: ATTEND Family Medicine Addiction Medicine
DX: R63.4 Abnormal weight loss (principal)

== ENCOUNTER 2024-06-04 10:26 | Day surgery (SDC) | payer OTHER ==
[~2024-06-04] VITALS: Ht 160 cm; Wt 57.6 kg
[~2024-06-04 10:26] MED LIST changes: +GLYCOPYRROLATE INJ 0.2 MG/ML 2 ML VIAL As Ordered ONE; +KETOROLAC 60MG 2ML VIAL As Ordered ONE; +LIDOCAINE 2% 100MG/5ML SDV (FOR ANES.) As Ordered ONE; +ONDANSETRON 4MG 2ML VIAL As Ordered ONE; +PANT40TA29 PO; +VITA100093 PO; +propofoL 200 MG/20 ML VIAL As Ordered ONE
[2024-06-04] MEDS: ceFAZolin SOD 2 GM IV ONCE IV ONE (10:34)
[2024-06-04] MEDS ORDERED: MIDAZOLAM INJ 2MG/2ML VIAL As Ordered ONE (10:46)
[2024-06-04] MEDS ORDERED: fentaNYL 100 MCG/2 ML INJECTION As Ordered ONE (10:46)
[2024-06-04] MEDS: LR 1,000 ML IV SCH (11:06)
[2024-06-04] MEDS: IPRATROPIUM 0.5MG/ALBUTEROL 2.5MG INH SOL UD 3ML (DUONEB) NEB ONE (11:15)
[2024-06-04] MEDS: LIDOCAINE 1% SDV 30ML VIAL As Ordered ONE (11:34)
[2024-06-04] MEDS ORDERED: ACETAMINOPHEN 1000MG/100ML IV BAG As Ordered ONE (11:36)
[2024-06-04] MEDS ORDERED: ePHEDrine SULFATE 25 MG/5 ML(5MG/ML) SYRINGE As Ordered ONE (11:37)
[2024-06-04] MEDS ORDERED: oxyCODONE 5MG TAB PO PRN (11:55)
[2024-06-04] MEDS ORDERED: MORPHINE 2 MG/ML 1ML VIAL IV PRN (11:55)
[2024-06-04] MEDS ORDERED: fentaNYL 100 MCG/2 ML INJECTION IV PRN (11:55)
[2024-06-04] MEDS ORDERED: ONDANSETRON 4MG 2ML VIAL IV PRN (11:55)
[2024-06-04 13:21] VITALS: BP 140/66; TEMP 97.9; O2SAT 98
== END 2024-06-04 13:25 | disposition home or self-care (01) ==
LOC: M SDC 10:26
PROVIDERS: ATTEND Podiatrist Foot & Ankle Surgery
DX: M21.6X2 Other acquired deformities of left foot (principal); K58.8 Other irritable bowel syndrome; K21.9 Gastro-esophageal reflux disease without esophagitis; G43.909 Migraine, unspecified, not intractable, without status migrainosus; Z79.82 Long term (current) use of aspirin; Z79.899 Other long term (current) drug therapy; Z88.0 Allergy status to penicillin; Z88.8 Allergy status to other drugs, medicaments and biological substances; F17.210 Nicotine dependence, cigarettes, uncomplicated
CPT/HCPCS: 28113; J0131; J0665; J0690; J1100; J1596; J1885; J2250; J2405; J3010